=== PATIENT | female | born 1945 | race Two or more races ===

== ENCOUNTER 2024-03-23 13:17 | Emergency (ER) | payer MEDICARE, MEDICAID, SELFPAY ==
--- NOTE | 2024-03-23 13:27 | EKG_ITS ---
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
[2024-03-23 13:47] VITALS: BP 147/69; PULSE 72; RESP 17; TEMP 36.8; O2SAT 95
--- NOTE | 2024-03-23 13:57 | XR_ITS ---
Examination: Ribs, left, with PA chest, 4 views Technique: Chest PA, RIBS AP, RPO, LPO, 4 views Exam date and time: March 23, 2024 1401 hours INDICATIONS: Patient fell yesterday with injury to the left chest left rib pain Findings: Normal heart size Median sternotomy wires. No pneumothorax IMPRESSION: No pneumothorax pulmonary contusion or hemothorax No acute left rib fractures depicted
--- NOTE | 2024-03-23 13:58 | PD.EDRME ---
Rapid Medical Screening Exam FORMERLY [facility] Arrival date/time: 03/23/24 13:17 78-year-old female presents to the emergency department with complaints of left-sided chest pain. She does report that yesterday she lifted a heavy mattress unknown if she pulled something. History of CABG and ND. I have greeted and performed a focused initial assessment of this patient. Initial appropriate labs ordered at this time. A comprehensive ED assessment and evaluation of the patient and analysis of all test and completion of medical decision making process will be conducted by additional ED provider. Chief Complaint: Chest Pain Time Seen by Provider: 03/23/24 13:45 Vital signs: Vital Signs Temperature 98.2 F 03/23/24 13:47 Pulse Rate 72 03/23/24 13:47 Respiratory Rate 17 03/23/24 13:47 Blood Pressure 147/69 H 03/23/24 13:47 Pulse Oximetry (%) 95 03/23/24 13:47 Oxygen Delivery Method Room Air 03/23/24 13:47
[2024-03-23 14:32] LABS: Basophils % (Auto) 1 % (0-2.5); Eosinophils # (Auto) 0.1 Thou/mm3 (0.0-0.5); Eosinophils % (Auto) 2 % (0-10); Hematocrit 37.5 % (36.0-46.0); Hemoglobin 12.5 g/dL (12.0-16.0); Immature Granulocytes % (Auto) 0 % (0-0); Immature Granulocytes Auto 0.01 Thou/mm3 (0.00-0.00); Lymphocytes # (Auto) 1.6 Thou/mm3 (1.0-4.8); Lymphocytes % (Auto) 26 % (10-50); Mean Corpuscular HGB Conc 33.3 g/dl (31.0-37.0); Mean Corpuscular Hemoglobin 31.7 pg (25.0-35.0); Mean Corpuscular Volume 95 fL (80-100); Monocytes # (Auto) 0.5 Thou/mm3 (0.0-0.8); Monocytes % (Auto) 8 % (0-12); Neutrophils % (Auto) 63 % (37-80); Nucleated Red Blood Cell % 0 /100 WBC (0); Platelet Count 242 Thou/mm3 (140-440); Red Blood Count 3.94 Miln/mm3 (4.00-5.20); White Blood Count 6.2 Thou/mm3 (3.6-11.0)
[2024-03-23 14:55] LABS: B-Type Natriuretic Peptide 166 pg/mL (0-100)
[2024-03-23 14:56] LABS: Alanine Aminotransferase 22 U/L (10-49); Albumin, Serum 4.5 gm/dL (3.4-4.8); Albumin/Globulin Ratio 2.1 (1.2-2.2); Alkaline Phosphatase 92 U/L (46-116); Anion Gap 4 (7-16); Aspartate Amino Transferase 13 U/L (0-34); BUN/Creatinine Ratio 16 Ratio (12-20); Bilirubin,Total 0.5 mg/dL (0.3-1.2); Blood Urea Nitrogen 13 mg/dL (9-23); Calcium 9.7 mg/dL (8.3-10.6); Calcium (Corrected) 9.7 mg/dL (8.5-10.1); Carbon Dioxide 30.7 mMol/L (20.0-31.0); Chloride 104 mMol/L (98-107); Creatinine (Component) 0.8 mg/dL (0.6-1.3); Globulin 2.1 gm/dL (2.3-3.5); Glucose 213 mg/dL (74-106); Lipase 28 U/L (12-53); Osmolality,Calculated 283 (275-295); Potassium 3.7 mMol/L (3.4-5.1); Sodium 139 mMol/L (136-145); Total Protein 6.6 gm/dL (5.7-8.2); Troponin I < 0.020 ng/mL (0.0-0.045); eGFR > 60 See Note
[2024-03-23 19:16] VITALS: BP 193/70; PULSE 72; RESP 17; TEMP 36.5; O2SAT 96
--- NOTE | 2024-03-23 19:27 | EDNOTE_ITS ---
ED Chest Pain RME/HPI General Chief Complaint: Chest Pain Stated Complaint: CHEST PRESSURE SINCE YESTERDAY Time Seen by Provider: 03/23/24 13:45 Arrival date/time: 03/23/24 13:17 RME / HPI RME / HPI narrative: 78-year-old female presents to the emergency department with complaints of left- sided chest pain. She does report that yesterday she lifted a heavy mattress unknown if she pulled something. Patient denies any shortness of breath. Denies any cough denies any other complaints patient is ambulatory. History of CABG and PA. Related Data Home Medications ?Medication ?Instructions ?Recorded ?Confirmed aspirin 81 mg tablet,delayed 81 mg PO QDAY 05/29/18 07/19/22 release omeprazole 20 mg capsule,delayed 40 mg PO QDAY 01/01/19 07/19/22 release alendronate 70 mg tablet 70 mg PO QWEEK 07/16/22 07/16/22 apixaban 2.5 mg tablet (Eliquis) 2.5 mg PO BID 07/16/22 07/16/22 ferrous sulfate 325 mg (65 mg 325 mg PO QDAY 07/16/22 07/19/22 iron) tablet losartan 100 1 tab PO QDAY 07/16/22 07/19/22 mg-hydrochlorothiazide 12.5 mg tablet metformin 500 mg tablet 500 mg PO BIDWMEAL 07/16/22 07/19/22 metoprolol succinate 50 mg 50 mg PO QDAY 07/16/22 07/19/22 tablet,extended release 24 hr potassium chloride 20 mEq 20 meq PO QDAY 07/16/22 07/19/22 tablet,extended release simvastatin 20 mg tablet 20 mg PO QPM 07/16/22 07/19/22 Previous Rx's ?Medication ?Instructions ?Recorded sodium chloride 0.65 % nasal spray 2 spray intranasal QID PRN nasal 12/09/21 aerosol (Saline Nasal) congestion #88 mL levofloxacin 750 mg tablet 750 mg PO QDAY #7 tabs 12/12/23 ibuprofen 800 mg tablet 800 mg PO QID PRN pain #30 tabs 03/23/24 Allergies Allergy/AdvReac Type Severity Reaction Status Date / Time Penicillins Allergy Unknown Verified 03/27/23 13:38 Review of Systems Review of Systems Narrative Review of Systems: Review of system reviewed and within normal limits except mentioned in HPI ED Exam Narrative Physical exam: VITAL SIGNS: Reviewed. GENERAL APPEARANCE: Alert and interactive, follows commands, no acute distress, HEAD AND FACE: Non-traumatic. ENT: PERRL, pink conjunctivitis, eyelid no trauma, Mucous membrane moist. NECK: Supple, nontender, no nuchal rigidity. CHEST: Tenderness to the left chest wall tenderness, no crepitus, no paradoxical movement, no retractions. LUNGS: Clear, well ventilated, symmetric, no rales, no wheezing, no ronchi, no stridor, good breath sounds bilaterally. HEART: Regular rate, regular rhythm, no murmur, no gallops. ABDOMEN: Soft, positive bowel sounds, nondistended, no guarding, nontender, no rebound, no masses, RECTAL: Deferred. GENITAL: Deferred. NEUROLOGICAL: Gross motor function intact sensory function intact, Appropriate for age. MUSCULOSKELETAL: low back nontender, full range of motion. EXTREMITIES: Nontender, full range of motion. SKIN: Color pink, dry, no rash, no lacerations, no abrasions, no contusions. LYMPHATICS: Deferred. Course Quality Measures none Orders Category Date Time Status EKG (ED ONLY) *Do not use* NOW Care 03/23/24 13:27 Completed EKG (ED Only) Stat Exams 03/23/24 13:27 Draft XR ribs LT min 3V w CXR1V Stat Exams 03/23/24 13:57 Completed B-Type Natriuretic Peptide Stat Lab 03/23/24 14:24 Completed CBC Stat Lab 03/23/24 14:24 Completed Comprehensive Metabolic Panel Stat Lab 03/23/24 14:24 Completed Lipase Stat Lab 03/23/24 14:24 Completed Troponin I Stat Lab 03/23/24 14:24 Completed Vital Signs Vital signs: Vital Signs Temperature 98.2 F 03/23/24 13:47 Pulse Rate 72 03/23/24 13:47 Respiratory Rate 17 03/23/24 13:47 Blood Pressure 147/69 H 03/23/24 13:47 Pulse Oximetry (%) 95 03/23/24 13:47 Oxygen Delivery Method Room Air 03/23/24 13:47 Chest Pain MDM Narrative MDM Narrative:: 78-year-old female presents to the emergency department with complaints of left- sided chest pain. She does report that yesterday she lifted a heavy mattress unknown if she pulled something. Patient denies any shortness of breath. Denies any cough denies any other complaints patient is ambulatory. History of CABG and PA. Patient's workup all came back normal. Chest x-ray also came back unremarkable no rib fracture no pneumothorax noted. EKG showed sinus rhythm, ventricular rate of 71 bpm, no ST segment elevation depression noted. Results discussed with the patient. Patient is stable for discharge home. Patient data External records reviewed:: None Clinical information provided by:: patient Social determinants that could affect healthcare access:: none Patient has the following chronic illnesses:: History of PA, CABG, hypertension How is presenting disease/condition affected by chronic disease/condition?: exacerbated by Evaluation data The following diagnostics were reviewed and interpreted by me:: lab results, radiology exam(s) and EKG tracing(s) Lab and/or radiology exams considered but not ordered:: None Interpretation Summary: Patient's workup all came back normal. Chest x-ray also came back unremarkable no rib fracture no pneumothorax noted. EKG showed sinus rhythm, ventricular rate of 71 bpm, no ST segment elevation depression noted. Medications / Prescriptions Medications or Prescriptions considered but not ordered:: None Medication administrations:: None Consultations Consultation(s) initiated? (list below): No Diagnosis Chest Pain Differential Diagnosis: pneumothorax, costochondritis and chest pain Most likely diagnosis given after review of the tests above:: Chest wall pain, muscular Admission Indicated Admission indicated?: not indicated Admission Request Was there a request for admission?: No Disposition Plan Disposition Plan: Discharge Discharge Attestation Discharge Attestation: The patient was given an opportunity to ask questions and understood the d ischarge instructions. Discharge instructions specifically effects, indications for sooner follow up or return to the emergency department, and the expected course of current diagnosis. Patient condition: Stable Discharge Plan Plan Patient Disposition: HOME (Self Care) Disposition Comment: Stable Prescriptions/Referrals Prescriptions/Med Rec: New ibuprofen 800 mg tablet 800 mg PO QID PRN (Reason: pain) Qty: 30 0RF No Action aspirin 81 mg Tablet,Delayed Release (Dr/Ec) 81 mg PO QDAY omeprazole 20 mg Capsule,Delayed Release(Dr/Ec) 40 mg PO QDAY Saline Nasal 0.65 % aerosol,spray 2 spray intranasal QID PRN (Reason: nasal congestion) Qty: 88 0RF levofloxacin 750 mg tablet 750 mg PO QDAY Qty: 7 0RF metformin 500 mg Tablet 500 mg PO BIDWMEAL metoprolol succinate 50 mg Tablet Extended Release 24 Hr 50 mg PO QDAY alendronate 70 mg Tablet 70 mg PO QWEEK simvastatin 20 mg Tablet 20 mg PO QPM ferrous sulfate 325 mg (65 mg iron) Tablet 325 mg PO QDAY losartan-hydrochlorothiazide 100-12.5 mg Tablet 1 tab PO QDAY Eliquis 2.5 mg Tablet 2.5 mg PO BID potassium chloride 20 mEq Tablet Extended Release 20 meq PO QDAY Referrals: Chaparro Mc MD [Primary Care Provider] - In 1 week Problem List Clinical Impression: Chest wall pain, Fall Patient/Caregiver Discharge Instructions Discharge Activity: activity as tolerated Education Materials: Understanding the Pain Response Additional Instructions: Thank you for the opportunity for serving you today. You are stable for discharged . You are advised to: Follow-up with your PCP in 1 to 2 days Return to ED for worsening of symptoms Increase oral fluids Take medication as prescribed Print Language: [place] Stand Alone Forms: Gretchen Award Info., Patient Portal Info Letter CHRISTIAN/RAY Supervising Physician CHRISTIAN/RAY Supervising Physician: MD Ayden
[2024-03-23 20:16] VITALS: BP 198/77; PULSE 65
[2024-03-23] MEDS: NIFEdipine 10 MG CAPSULE PO (20:16)
[2024-03-23 21:00] VITALS: BP 164/76; PULSE 70; RESP 18; O2SAT 96
== END 2024-03-23 21:13 | disposition home or self-care (01) ==
PROVIDERS: Nurse Practitioner Primary Care; Emergency Provider Emergency Medicine; PCP Family Medicine
DX: S29.9XXA Unspecified injury of thorax, initial encounter (principal); W19.XXXA Unspecified fall, initial encounter; I10 Essential (primary) hypertension; I25.2 Old myocardial infarction; Z95.1 Presence of aortocoronary bypass graft; Z79.01 Long term (current) use of anticoagulants
CPT/HCPCS: 36415; 71101; 80053; 83690; 83735; 83880; 84484; 85025; 85610; 93005; 99283; A9270

== ENCOUNTER 2025-02-15 21:07 | Observation (INO) | payer MEDICARE, MEDICAID, SELFPAY ==
[2025-02-15 21:16] VITALS: BP 191/97; PULSE 73; RESP 18; TEMP 36.8; O2SAT 95
--- NOTE | 2025-02-15 21:19 | XR_ITS ---
Examination: CTA carotids with intravenous contrast CTA brain, head with intravenous contrast. 2-D sagittal, coronal reconstructions. 3-D reconstructions. Exam date and time: February 15, 2025, 2132 hours CTDI: vol (mGy) 26.99 DLP: (mGycm) 499 Technique: Multiple CTA axial brain, head carotid images post intravenous contrast injection 75 cc, [id number]. 2-D sagittal, coronal reconstructions. 3-D reconstructions, 3-D post processing including vascular maximum intensity projection images. Low dose protocols were performed. One or more of the following dose reduction techniques were used; automated exposure control, adjustment of the mA and/or KV according to patient size, use of iterative reconstruction technique. Findings: No critical common carotid carotid bifurcation or internal carotid artery stenoses Dominant left vertebral artery in the neck with no critical stenoses Intracranial vertebral arteries basilar artery and posterior cerebral branches do fill with no large vessel occlusions Juxtasellar supraclinoid portions internal carotid arteries fill M1 segments middle cerebral arteries middle cerebral artery trifurcation vessels and anterior cerebral arteries fill with no large vessel occlusions IMPRESSION: No significant neck arterial stenoses No cerebral large vessel arterial occlusions or thrombus
--- NOTE | 2025-02-15 21:19 | XR_ITS ---
EXAMINATION: AP chest single view TECHNIQUE: AP portable upright chest single view Date and time: February 15, 2025, 215 hours, comparison March 23, 2024 INDICATIONS: Stroke alert today FINDINGS: Mild to moderate enlargement cardiac contour. Median sternotomy wires. Moderate vascular congestion. No aspiration pneumonia. Prominent osteopenia IMPRESSION: Moderate vascular congestion No aspiration pneumonia
--- NOTE | 2025-02-15 21:19 | XR_ITS ---
Examination: CT brain head without contrast. 2-D sagittal coronal reconstructions Date and time of exam: February 15, 2025, 2125 hours INDICATIONS: Stroke alert CTDI: vol (mGy): 49.1 DLP: (mGycm): 954 Technique: Multiple CT axial sections of the brain have been obtained, 5 mm slice thickness. Contrast has not been administered. 2-D sagittal, coronal reconstructions have been obtained Low dose protocols were performed. One or more of the following dose reduction techniques were used; automated exposure control, adjustment of the mA and/or KV according to patient size, use of iterative reconstruction technique. Findings: No significant ventricular enlargement. Intra-axial or extra-axial hemorrhage density is not seen. No mass effect or midline shift Basal cisterns are not remarkable. Fourth ventricle is midline. Cranial vault intact. Impression: Negative for acute hemorrhage, mass effect or midline shift
--- NOTE | 2025-02-15 21:19 | EKG_ITS ---
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
--- NOTE | 2025-02-15 21:20 | PD.EDRME ---
Rapid Medical Screening Exam [facility] Arrival date/time: 02/15/25 21:07 79F with history of HTN, DM, and unknown heart arrhythmia (on Eliquis) presents to ED with 1 hour of L-facial numbness and mild DAVID. There is also some generalized weakness. Patient denies vision changes. Chief Complaint: Neuro Symptoms/Deficit Vital signs: Vital Signs Temperature 98.2 F 02/15/25 21:16 Pulse Rate 73 02/15/25 21:16 Respiratory Rate 18 02/15/25 21:16 Blood Pressure 191/97 H 02/15/25 21:16 Pulse Oximetry (%) 95 02/15/25 21:16 Oxygen Delivery Method Room Air 02/15/25 21:16 Exam: Normal pupil response and EOM. CN II-XII grossly intact. Speech normal. Gait normal. Neg pronator drift test. Strength equal bilaterally. Clinical Impression: hemorrhagic/ischemic TIA/CVA vs migraine vs anxiety vs Cabrera's Palsy vs sinusitis
[2025-02-15 21:34] LABS: Basophils # (Auto) 0.0 Thou/mm3 (0.0-0.2); Basophils % (Auto) 0 % (0-2.5); Eosinophils # (Auto) 0.2 Thou/mm3 (0.0-0.5); Eosinophils % (Auto) 2 % (0-10); Hematocrit 38.9 % (36.0-46.0); Hemoglobin 13.2 g/dL (12.0-16.0); Immature Granulocytes Auto 0.02 Thou/mm3 (0.00-0.00); Lymphocytes # (Auto) 2.5 Thou/mm3 (1.0-4.8); Lymphocytes % (Auto) 36 % (10-50); Mean Corpuscular HGB Conc 33.9 g/dl (31.0-37.0); Mean Corpuscular Hemoglobin 31.6 pg (25.0-35.0); Mean Corpuscular Volume 93 fL (80-100); Monocytes # (Auto) 0.6 Thou/mm3 (0.0-0.8); Monocytes % (Auto) 8 % (0-12); Neutrophils # (Auto) 3.6 Thou/mm3 (1.8-7.7); Neutrophils % (Auto) 53 % (37-80); Nucleated Red Blood Cell # 0.00 Thou/mm3 (0.00-0.00); Nucleated Red Blood Cell % 0 /100 WBC (0); Platelet Count 211 Thou/mm3 (140-440); RDW Standard Deviation 42.6 fL (36.4-46.3); Red Blood Count 4.18 Miln/mm3 (4.00-5.20); White Blood Count 6.9 Thou/mm3 (3.6-11.0)
--- NOTE | 2025-02-15 21:47 | PD.EDNEURO ---
Neuro Symptoms Deficit-RME/HPI General Chief Complaint: Neuro Symptoms/Deficit Stated Complaint: DAVID, LEFT FACIAL NUMBNESS X1HR, WEAKNESS Arrival date/time: 02/15/25 21:07 RME / HPI On Anticoagulants: Yes RME / HPI Narrative: 02/15/25 21:07 79F with history of HTN, DM, and unknown heart arrhythmia (on Eliquis) presents to ED with 1 hour of L-facial numbness and mild DAVID. There is also some generalized weakness. Patient denies vision changes. DR. 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 No nausea, vomiting, fever or chills. No visual disturbances, laterallizing motor or sensory disturbance. On Eliquis. PMH: Coronary Artery Disease, Hypercholesterolemia, Valvular Heart Disease, Hypertension, Obesity, Arthritis, Diabetes Mellitus Type 2 PSH: Cardiac Surgery, Open Heart Surgery, Coronary Artery Bypass Graft, Hysterectomy and Tubal Ligation, Veinous Stripping Allergies: Penicillins Social: Negative Exam: Normal pupil response and EOM. CN II-XII grossly intact. Speech normal. Gait normal. Neg pronator drift test. Strength equal bilaterally. Impression: hemorrhagic/ischemia TIA/CVA vs migraine vs anxiety vs Cabrera's Palsy Related Data Home Medications ?Medication ?Instructions ?Recorded ?Confirmed aspirin 81 mg tablet,delayed 81 mg PO QDAY 05/29/18 02/16/25 release omeprazole 20 mg capsule,delayed 40 mg PO QDAY 01/01/19 02/16/25 release ferrous sulfate 325 mg (65 mg 325 mg PO QDAY 07/16/22 02/16/25 iron) tablet losartan 100 1 tab PO QDAY 07/16/22 02/16/25 mg-hydrochlorothiazide 12.5 mg tablet metformin 500 mg tablet 500 mg PO BIDWMEAL 07/16/22 02/16/25 potassium chloride 20 mEq 20 meq PO QDAY 07/16/22 02/16/25 tablet,extended release simvastatin 20 mg tablet 20 mg PO QPM 07/16/22 02/16/25 Previous Rx's ?Medication ?Instructions ?Recorded sodium chloride 0.65 % nasal spray 2 spray intranasal QID PRN nasal 12/09/21 aerosol (Saline Nasal) congestion #88 mL ibuprofen 800 mg tablet 800 mg PO QID PRN pain #30 tabs 03/23/24 Allergies Allergy/AdvReac Type Severity Reaction Status Date / Time Penicillins Allergy Unknown Verified 02/15/25 21:08 Review of Systems Review of Systems Systems Reviewed: All systems reviewed, normal except as documented Past Medical History Past Medical History CARDIAC: Positive Coronary Artery Disease, Hypercholesterolemia, Valvular Heart Disease and Hypertension GASTROINTESTINAL: Positive Obesity REPRODUCTIVE: Positive Previous Pregnancies MUSCULOSKELETAL: Positive Arthritis ENDOCRINE: Positive Diabetes Mellitus Type 2 Surgical History SURGICAL: Positive Cardiac Surgery, Open Heart Surgery, Coronary Artery Bypass Graft, Hysterectomy and Tubal Ligation ED Exam Narrative Physical exam: GEN. APPEARANCE: The patient is alert awake oriented X-3 under no distress, lying down comfortably, does not look ill/toxic c/o left facial paresthesias. Patient has good eye contact. Patient is cooperative. Markedly hypertensive. VITALS: All vitals were reviewed and the pulse ox is 95%, which is normal according to my interpretation HEENT: Normocephalic, atraumatic and nontender. Pupils are equal and reactive. Oral mucosa is moist. NECK: Supple, nontender, no meningismus, no JVD. There is no thyromegaly and no lymphadenopathy. CHEST: Nontender on palpation no deformity and no crepitus. CARDIOVASCULAR: Heart regular rhythm, no murmur or gallop rub or extra beats. LUNGS: Clear to auscultation bilaterally with symmetrical chest rise. No laboring tachypnea or wheezing. No intercostal subcostal retraction. No rales and no rhonchi. ABDOMEN: Soft, flat, nontender to palpation, no guarding or rebound tenderness. There are no abnormal masses palpated. No pulsatile masses or bruits. Active and normal bowel sounds. EXTREMITIES: Normal inspection and palpation. No edema. No cyanosis. Patient is able to move all 4 extremities well SKIN: Warm and dry, no rashes noted. MUSCULOSKELETAL: No lumbar or midline bony tenderness. There is no CVA tenderness. No paraspinal muscle spasm or tenderness. NEURO: Cranial nerves II through XII grossly intact. There are no focal neurologic deficits noted. Slightly diminished left-facial sensation of left maxillary region/CN V, normal [id number], gait not observed. PSYCHIATRIC: Patient is in normal mood and affect, cooperative. LYMPHATICS: No major lymphadenopathy noted. Course Quality Measures Suspected type of Stroke: Unknown at this time Last known well (date): 02/15/25 Tenecteplase given: Reason(s) TPA not given: Use of NOAC (eliquis, xarelto, or pradaxa) not given stroke Orders Category Date Time Status Bedside Blood Glucose NOW Care 02/15/25 21:19 Active Fruit Worker NOW Care 02/15/25 21:19 Active Continuous Pulse Oximetry NOW Care 02/15/25 21:19 Completed EKG (ED ONLY) *Do not use* NOW Care 02/15/25 21:19 Completed In and Out Catheter NEEDED Care 02/15/25 21:19 Active Insert IV NOW Care 02/15/25 21:19 Active NIH Stroke Scale now Care 02/15/25 21:19 Active NPO NOW Care 02/15/25 21:19 Active Nurse Swallow Screen x1 Care 02/15/25 21:19 Active Consult to Neurology / Tele-Neurology Routine Cons 02/15/25 21:[address] angio stroke protocol Stat Exams 02/15/25 21:[address] stroke protocol Stat Exams 02/15/25 21:19 Taken EKG (ED Only) Stat Exams 02/15/25 21:19 Draft XR chest 1V portable Stat Exams 02/15/25 21:19 Completed C-Reactive Protein Stat Lab 02/15/25 21:21 Completed CBC Stat Lab 02/15/25 21:21 Completed Comprehensive Metabolic Panel Stat Lab 02/15/25 21:21 Completed Drug Screen,Urine Stat Lab 02/15/25 10:30 Completed Magnesium Stat Lab 02/15/25 21:21 Completed Partial Thromboplastin Time Stat Lab 02/15/25 21:21 Completed Prothrombin Time with INR Stat Lab 02/15/25 21:21 Completed Troponin I Stat Lab 02/15/25 21:21 Completed Urinalysis, C/S if Indicated Stat Lab 02/15/25 10:30 Completed Labetalol* IV [Trandate* IV] Med 02/15/25 21:19 Discontinued 10 mg IVP Q15M PRN Ondansetron Inj [Zofran Inj] Med 02/15/25 21:19 Discontinued 4 mg IVP Q4HR PRN hydrALAZINE INJ [Apresoline Inj] Med 02/15/25 22:03 Discontinued 5 mg IVP X1 ONE Oxygen Delivery NOW RT 02/15/25 21:19 Active Vital Signs Vital signs: Vital Signs Temperature 98.2 F 02/15/25 21:16 Pulse Rate 73 02/15/25 21:16 Respiratory Rate 18 02/15/25 21:16 Blood Pressure 191/97 H 02/15/25 21:16 Pulse Oximetry (%) 95 02/15/25 21:16 Oxygen Delivery Method Room Air 02/15/25 21:16 Neuro Symptoms / Deficit MDM Narrative MDM Narrative:: Scribe Attestation: Yesenia Garcia, am scribing for and in the presence of Dr. Singleton. Provider Notation: Although this document has been carefully reviewed, there may still be some phonetic and other typographical errors. These errors are purely grammatical due to imperfections in the software program and should not be construed in any way to compromise the substance of the patient's medical care during this visit. 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 No nausea, vomiting, fever or chills. No visual disturbances, liberalizing motor or sensory disturbance. Please see PE findings. Patient placed on stroke protocol and CT scan unremarkable. CTA also negative. Patient seen by neuro-telli physician and not candidate for TNKase due to full-dose anticoagulate, on Eliquis and minimal symptoms. Placed on cardiac catheterization technologist, administered anti-hypertensives, with marked overall improvement. Recommendations include admit for observation, continue ASA and hold Eliquis at this time. Final diagnosis is hypertensive episode disposition, admit to hospital service for further evaluation and treatment. Patient data External records reviewed:: [facility] previous records (Reviewed prior ED records from 03/23/24. Patient was seen for Chest wall pain.) Clinical information provided by:: patient Social determinants that could affect healthcare access:: none Patient has the following chronic illnesses:: Coronary Artery Disease, Hypercholesterolemia, Valvular Heart Disease, Hypertension, Obesity, Arthritis, Diabetes Mellitus Type 2 How is presenting disease/condition affected by chronic disease/condition?: exacerbated by Evaluation data The following diagnostics were reviewed and interpreted by me:: lab results, radiology exam(s) and EKG tracing(s) (EKG at 2139 shows normal sinus rhythm at 69, normal axis, no ectopy, no signs of acute ischemia, per my interpretation.) Lab and/or radiology exams considered but not ordered:: None Interpretation Summary: RADIOLOGY Head/Neck CTA: Findings: No critical common carotid carotid bifurcation or internal carotid artery stenoses Dominant left vertebral artery in the neck with no critical stenoses Intracranial vertebral arteries basilar artery and posterior cerebral branches do fill with no large vessel occlusions Juxtasellar supraclinoid portions internal carotid arteries fill M1 segments middle cerebral arteries middle cerebral artery trifurcation vessels and anterior cerebral arteries fill with no large vessel occlusions IMPRESSION: No significant neck arterial stenoses No cerebral large vessel arterial occlusions or thrombus Head/Brain CT: Findings: There is no evidence of intracranial hemorrhage, mass effect or midline shift. There are periventricular white matter hypodensities, compatible with chronic small vessel ischemia. There is mild volume loss. The calvarium is unremarkable. The mastoid air cells are clear. Mucosal inclusion cysts in the left maxillary sinus. Impression: No evidence of intracranial hemorrhage, mass effect or midline shift. Periventricular chronic small vessel ischemia and volume loss. Aspirin score 10. Chest X-Ray: FINDINGS: Mild to moderate enlargement cardiac contour. Median sternotomy wires. Moderate vascular congestion. No aspiration pneumonia. Prominent osteopenia IMPRESSION: Moderate vascular congestion No aspiration pneumonia Medications / Prescriptions Medications or Prescriptions considered but not ordered:: None Medication administrations:: Medication Administration History Acetaminophen (Acetaminophen 325 Mg Tablet) 650 mg PO Q6H PRN PRN Reason: Fever >100.4 Stop: 03/18/25 01:18 Acetaminophen (Acetaminophen 325 Mg Tablet) 650 mg PO Q6H PRN PRN Reason: PAIN SCALE 1-3 (mild Stop: 03/18/25 01:18 Last Admin: 02/16/25 02:50 Dose: 650 mg Documented By: MERNA Aspirin (Aspirin Ec 81 Mg Tabec) 81 mg PO QDAY INA Stop: 03/18/25 08:59 Last Admin: 02/16/25 08:24 Dose: 81 mg Documented By: TM Atorvastatin Calcium (Atorvastatin Calcium 20 Mg Tablet) 40 mg PO HS INA Stop: 03/18/25 20:59 Dextrose (Dextrose 50%-Water Inj 50 Ml Syringe) 25 ml IV Q15MIN PRN PRN Reason: BG 50-70 responsive npo pt Stop: 03/18/25 01:39 Dextrose (Dextrose 50%-Water Inj 50 Ml Syringe) 50 ml IV Q15MIN PRN PRN Reason: BG <50 OR BG <70 & pt unresponsive Stop: 03/18/25 01:39 Enoxaparin Sodium (Enoxaparin Sod Inj 40 Mg/0.4 Ml Syringe) 40 mg SC QDAY INA Stop: 03/02/25 08:59 Last Admin: 02/16/25 08:23 Dose: 40 mg Documented By: LEIGHANN Glucagon (Glucagon Inj 1 Mg Vial) 1 mg IM Q15MIN PRN PRN Reason: BG <70, and no IV access Insulin Human Lispro (Insulin Lispro (Admelog) 1 Unit/0.01 Ml Unit) 0 unit SC AC [facility]; Protocol Stop: 03/18/25 07:29 Last Admin: 02/16/25 17:48 Dose: 2 unit Documented By: DANNY Co-signed By: benedict Admin: 02/16/25 12:00 Dose: Not Given Documented By: DANNY Non-Admin Reason: Per Protocol Admin: 02/16/25 08:10 Dose: Not Given Documented By: LEIGHANN Non-Admin Reason: Per Protocol Labetalol HCl (Labetalol Inj 5 Mg/Ml Vial 4 Ml) 10 mg IVP Q15M PRN PRN Reason: hypertension Ondansetron HCl (Ondansetron Inj 2 Mg/Ml Inj 2 Ml) 4 mg IVP Q6H PRN; Protocol PRN Reason: NAUSEA OR VOMITING Stop: 03/18/25 01:18 Pantoprazole Sodium (Pantoprazole Inj 40 Mg Vial) 40 mg IVP QDAY INA Stop: 03/18/25 08:59 Last Admin: 02/16/25 08:23 Dose: 40 mg Documented By: LEIGHANN Sennosides (Senna Tablet) 1 tab PO QDAY INA; Protocol Stop: 03/18/25 08:59 Last Admin: 02/16/25 08:24 Dose: 1 tab Documented By: TM Discontinued Medications Hydralazine HCl (Hydralazine Inj 20 Mg/Ml Vial) 5 mg IVP X1 ONE Stop: 02/15/25 22:04 Last Admin: 02/15/25 22:21 Dose: 5 mg Documented By: MERNA Sodium Chloride (Ns) 1,000 mls @ 75 mls/hr IV .[id number] INA Stop: 03/18/25 01:29 Last Admin: 02/16/25 02:30 Dose: 75 mls/hr Documented By: MERNA Labetalol HCl (Labetalol Inj 5 Mg/Ml Vial 4 Ml) 10 mg IVP Q15M PRN PRN Reason: hypertension Ondansetron HCl (Ondansetron Inj 2 Mg/Ml Inj 2 Ml) 4 mg IVP Q4HR PRN PRN Reason: NAUSEA OR VOMITING Stop: 03/17/25 21:18 See above if any Consultations Consultation(s) initiated? (list below): Yes Consultation #1 (Physician, Specialty, Details): Telli-neurologist made aware of the patient?s HPI, PMHx, lab and/or radiology results. Discussed treatment plan. Advises to discontinue Eliquis and continue with ASA. Time: 22:27 Consultation #2 (Physician, Specialty, Details): Discussed with resident physician, Dr. Negron, for admission. Reviewed the patient?s HPI, PMHx, lab and/or radiology results. Discussed treatment plan. Will consult an admission to the hospitalist. Time: 00:43 Diagnosis Neuro Differential Diagnosis: convulsions, delirium, subarachnoid hemorrhage, peripheral neuropathy, cerebrovascular accident, multiple sclerosis and transient cerebral ischemia Most likely diagnosis given after review of the tests above:: Hypertensive Episode Admission Indicated Admission indicated?: indicated Explain why admission is indicated or not indicated:: Hypertensive Episode Admission Request Was there a request for admission?: Yes Admission Attestation Admission request attestation: Discussed case with [] from Hospitalist service regarding admission. Discussed patients ED course, exam findings, labs, and radiology results. The Hospitalist [agrees,declines] to accept the patient for admission. Disposition Plan Disposition Plan: Admit Discharge Plan Plan Patient Disposition: Admit Acute Care w/in Hospital Problem List Clinical Impression: Episode of hypertension
[2025-02-15 22:01] LABS: INR 1.0 (0.9-1.3); Partial Thromboplastin Time 27.7 Seconds (22.0-36.0); Prothrombin Time 10.4 Seconds (9.0-12.2)
--- NOTE | 2025-02-15 22:02 | ESCONSULT_ITS ---
Tele Neuro Consultation Consultation Date 02/15/25 Most Recent Vital Signs Last Vital Signs Temp 98.2 F 02/15/25 21:16 Pulse 73 02/15/25 21:16 Resp 18 02/15/25 21:16 BP 191/97 H 02/15/25 21:16 Pulse Ox 95 02/15/25 21:16 O2 Del Method Room Air 02/15/25 21:16 Laboratory-Coagulation Panel PT 10.4 Seconds (9.0-12.2) 02/15/25 21:21 INR 1.0 (0.9-1.3) 02/15/25 21:21 APTT 27.7 Seconds (22.0-36.0) 02/15/25 21:21 Consultation Narrative [facility] Tele[facility]urology Consult Services Patient Name:???VIVIANE MCKINLEY Date of :???1945 Identification Number:??? Date of Service:???02/15/2025 21:21:47 Diagnosis:?R51.9 - Headache, unspecified ?R20.2 - Paresthesia of skin Impression: ?79yo woman with history of HTN, cardiac arrhythmia on eliquis, DM, HLD presents with headache and left facial numbness. Not a candidate for thrombolytics as she is on a DOAC with last dose within 48hrs. CTA pending, if negative, recommend further evaluation with MRI Brain w/o, hold eliquis pending MRI, start aspirin instead. Would also screen ESR/CRP. Our recommendations are outlined below. Recommendations: ? Stroke/Telemetry Floor ? Neuro Checks (Q4) ? Bedside Swallow Eval ? DVT Prophylaxis ? IV Fluids, Normal Saline ? Head of Bed 30 Degrees ? Euglycemia and Avoid Hyperthermia (PRN Acetaminophen) ? Hold Anticoagulation for Now ? Initiate or continue Aspirin 81 MG daily ?MRI brain w/o ?screen ESR/CRP Sign Out: ? Discussed with Emergency Department Provider Advanced Imaging: Advanced imaging has been ordered. Results pending. Metrics: Last Known Well: 02/15/2025 20:00:00 Arrival Time: 02/15/2025 21:07:00 Activation Time: 02/15/2025 21:21:47 Initial Response Time: 02/15/2025 21:25:20Symptoms: headache, left facial numbness. Initial patient interaction: 02/15/2025 21:40:54 NIHSS Assessment Completed: 02/15/2025 21:57:57Patient is not a candidate for Thrombolytic. Thrombolytic Medical Decision: 02/15/2025 21:57:57Patient was not deemed candidate for Thrombolytic because of following reasons: Use of NOAC in last [address] Head: I personally reviewed all the CT images that were available to me and it showed: no ICH or acute core infarct Primary Provider Notified of Diagnostic Impression and Management Plan on: 02/15/2025 21:58:07 History of Present Illness:Patient is a 79 year old Female. Patient was brought by private transportation with symptoms of headache, left facial numbness. 79yo woman with history of HTN, afib on eliquis, DM, HLD presents with headache and left facial numbness. She reports onset of a mild frontal headache at around 8pm about an hour prior to presentation to the ED along with left facial numbness which has persisted. Headache was not severe at any point. She is on eliquis, last dose this morning per patient. Past Medical History: ?Hypertension ?Diabetes Mellitus ?Hyperlipidemia ?Atrial Fibrillation Medications: Anticoagulant use:??Yes?eliquis, last dose this morning Antiplatelet use:?Yes?aspirin Reviewed EMR for current medications Allergies:? Reviewed Social History: Drug Use: No Family History: There is no family history of premature cerebrovascular disease pertinent to this consultation ROS : 14 Points Review of Systems was performed and was negative except mentioned in HPI. Past Surgical History: There Is No Surgical History Contributory To Today?s Visit Examination: BP(191/97),?Pulse(73), 1A: Level of Consciousness - Alert; keenly responsive?+ 0 1B: Ask Month and Age - Both Questions Right?+ 0 1C: Blink Eyes & Squeeze Hands - Performs Both Tasks?+ 0 2: Test Horizontal Extraocular Movements - Normal?+ 0 3: Test Visual Bills - Partial Hemianopia?+ 1 4: Test Facial Palsy (Use Grimace if Obtunded) - Normal symmetry?+ 0 5A: Test Left Arm Motor Drift - No Drift for 10 Seconds?+ 0 5B: Test Right Arm Motor Drift - No Drift for 10 Seconds?+ 0 6A: Test Left Leg Motor Drift - No Drift for 5 Seconds?+ 0 6B: Test Right Leg Motor Drift - No Drift for 5 Seconds?+ 0 7: Test Limb Ataxia (FNF/Heel-Rowley) - No Ataxia?+ 0 8: Test Sensation - Mild-Moderate Loss: Less Sharp/More Dull?+ 1 9: Test Language/Aphasia - Normal; No aphasia?+ 0 10: Test Dysarthria - Normal?+ 0 11: Test Extinction/Inattention - No abnormality?+ 0 NIHSS Score:?2 NIHSS Free Text :?left face decreased sensation to LT, question of right upper quadrant VF deficit in the right eye only, unclear if new or chronic, left eye appears intact Pre-Morbid Modified Wheatley Scale: 0 Points = No symptoms at all Spoke with :?ED physician This consult was conducted in real time using interactive audio and video technology. Patient was informed of the technology being used for this visit and agreed to proceed. Patient located in hospital and provider located at home /office setting. Patient is being evaluated for possible acute neurologic impairment and high probability of imminent or life-threatening deterioration. I spent total of 40 minutes providing care to this patient, including time for face to face visit via telemedicine, review of medical records, imaging studies and discussion of findings with providers, the patient and/or family. Dr Ike Ruffin [facility] For Inpatient follow-up with [facility] physician please call [facility] at . As we are not an outpatient service for any post hospital discharge needs please contact the hospital for assistance. If you have any questions for the [facility] physicians or need to reconsult for clinical or diagnostic changes please contact us via [facility] at . Non-radiologist review of imaging performed to assist with emergent clinical decision-making. Remote physician workstations do not possess the same resolution, calibration, or diagnostic capabilities as hospital-based radiology reading stations, and formal radiologist read is necessary. Signature :Sylvia Ruffin
[2025-02-15 22:08] VITALS: BP 193/64; PULSE 75; RESP 16; O2SAT 98
[2025-02-15 22:11] LABS: Alanine Aminotransferase 28 U/L (10-49); Albumin, Serum 4.7 gm/dL (3.4-4.8); Albumin/Globulin Ratio 2.5 (1.2-2.2); Alkaline Phosphatase 97 U/L (46-116); Anion Gap 9 (7-16); Aspartate Amino Transferase 31 U/L (0-34); BUN/Creatinine Ratio 17 Ratio (12-20); Bilirubin,Total 0.4 mg/dL (0.3-1.2); Blood Urea Nitrogen 10 mg/dL (9-23); Calcium 10.0 mg/dL (8.3-10.6); Calcium (Corrected) 10.0 mg/dL (8.5-10.1); Carbon Dioxide 28.3 mMol/L (20.0-31.0); Chloride 103 mMol/L (98-107); Creatinine (Component) 0.6 mg/dL (0.6-1.3); Globulin 1.9 gm/dL (2.3-3.5); Glucose 137 mg/dL (74-106); Magnesium 1.6 mg/dL (1.6-2.6); Osmolality,Calculated 280 (275-295); Potassium 4.1 mMol/L (3.4-5.1); Sodium 140 mMol/L (136-145); Total Protein 6.6 gm/dL (5.7-8.2); Troponin I < 0.020 ng/mL (0.0-0.045); eGFR > 60 See Note
--- NOTE | 2025-02-15 22:11 | PC.NURSE ---
[facility] CONSULT MADE 2120 #[id number]
[2025-02-15 22:21] VITALS: BP 193/64; PULSE 69
[2025-02-15] MEDS: hydrALAZINE INJ 20 MG/ML VIAL 5 MG IVP (22:21)
[2025-02-15 22:46] VITALS: TEMP 36.7
[2025-02-15 22:53] LABS: Collection Type, Urine Clean Catch; Squamous Epithelial Cell,Urine 0 /hpf (0-5)
[2025-02-15 22:55] LABS: C-Reactive Protein < 0.5 mg/dL (0.0-0.9)
[2025-02-15 22:57] LABS: Bilirubin,Urine Negative (Negative); Blood,Urine Negative (Negative); Clarity,Urine Clear (Clear/Hazy); Color,Urine Colorless (Lt Yel-Yel); Culture Indicated,Urine Not Indicated; Glucose, Urine Negative (Negative); Ketones,Urine Negative (Negative); Leukocyte Esterase,Urine Positive (Negative); Nitrite,Urine Negative (Negative); PH,Urine 6.5 (5.0-7.0); Protein,Urine Negative (Neg - Trace); RBC,Urine 1 /hpf (0-3); Specific Gravity,Urine 1.015 (1.001-1.035); Urobilinogen,Urine Negative mg/dL (0.0-1.0); WBC,Urine 4 /hpf (0-5)
[2025-02-15 23:03] LABS: Amphetamine/Methamp Scrn,U Negative (Negative); Barbiturate Screen,Urine Negative (Negative); Benzodiazepines Screen,Urine Negative (Negative); Benzoylecgonine Screen, Ur Negative (Negative); Fentanyl Screen,Urine Negative (Negative); Opiate Screen,Urine Negative (Negative); THC Screen,Urine Negative (Negative)
[2025-02-15 23:33] VITALS: BP 156/66; PULSE 68; RESP 18; TEMP 36.7; O2SAT 98
[2025-02-16] VITALS (9 sets, daily range): BP systolic 113–180; BP diastolic 50–87; PULSE 63–95; RESP 10–21; TEMP 35.8–37.1; O2SAT 94–100
--- NOTE | 2025-02-16 | XR_ITS ---
Examinations: MRI Brain without intravenous contrast. MRA brain without intravenous contrast. MRA carotids without intravenous contrast 3-D vascular reconstructions Date and time of exam: February 16, 2025, at 1657 hours INDICATIONS: Stroke alert yesterday, onset generalized weakness and focal neurologic deficits Technique: Multiple axial and sagittal images of the brain have been obtained MRA brain carotid images without contrast obtained, including 3-D postprocessing, vascular maximum intensity projection images Findings: Sellaturcica is not enlarged. The optic chiasm and infundibular stalk are not remarkable. Prepontine and interpeduncular cisterns are not enlarged. No localized enlargement of the medulla or kymberly. Fourth ventricle and cerebellar tonsils normal in position. Subacute hemorrhage is not seen. Fourth ventricle is midline. Mass in the cerebellopontine angle region is not evident. 7th and 8th nerve complexes exhibits symmetry. Globes are symmetrical with no retro-orbital mass. Increased white matter signal moderate Diffusion-weighted images demonstrate no focus of restricted diffusion Mass-effect upon the ventricular system is not identified. MRA carotid images degraded by patient motion. MRA brain images no large vessel occlusions Impression: Negative for acute hemorrhage mass effect or midline shift No acute infarct Moderate chronic microvascular white matter change
--- NOTE | 2025-02-16 00:32 | PRELIM_ITS ---
CT angiogram of the head and neck with intravenous contrast (axial sections with sagittal and coronal reformats) February 15, 2025 2132 hours Clinical History: Focal neuro deficit, stroke suspected Comparison: None available at the time of this report. Findings: Head: The internal carotid, middle and anterior cerebral arteries are patent bilaterally. The intracranial vertebral arteries are patent. The vertebrobasilar junction, basilar and posterior cerebral arteries are patent. No evidence of large vessel occlusion, critical stenosis or aneurysm. Neck: The aortic arch to the extent visualized as well as the origins of the right brachiocephalic, left common carotid, and left subclavian arteries are patent. The common carotid arteries, carotid bulbs, and internal and external carotid arteries are patent. The origins of the vertebral arteries are unremarkable. The left vertebral artery is dominant. No evidence of vascular occlusion, critical stenosis, dissection or aneurysm. The soft tissues of the neck are unremarkable. Sternal wires. No acute fractures. Impression: Head: No evidence of large vessel occlusion, critical stenosis or aneurysm. Neck: No evidence of vascular occlusion, critical stenosis, dissection or aneurysm. Report Electronically Signed By: Shukri Mckeon 02/16/2025 12:32:12 AM [EST]
--- NOTE | 2025-02-16 01:16 | PRELIM_ITS ---
CT scan of the head without intravenous contrast (axial sections with sagittal and coronal reformats) February 15, 2025 2126 hours Clinical history: Focal neuro deficit, stroke suspected Comparison: None available at the time of this report. Findings: There is no evidence of intracranial hemorrhage, mass effect or midline shift. There are periventricular white matter hypodensities, compatible with chronic small vessel ischemia. There is mild volume loss. The calvarium is unremarkable. The mastoid air cells are clear. Mucosal inclusion cysts in the left maxillary sinus. Impression: No evidence of intracranial hemorrhage, mass effect or midline shift. Periventricular chronic small vessel ischemia and volume loss. Aspirin score 10. Report Electronically Signed By: Shukri Mckeon 02/16/2025 1:15:46 AM [EST]
--- NOTE | 2025-02-16 01:24 | ECHO_ITS ---
Patient Info Name: Caitlin Chavez Age: 79 years : 1945 Gender: Female Ht: 155 cm Wt: 76 kg BSA: 1.84 m2 BP: 150 / 76 mmHg HR: 68 bpm Exam Date: 02/18/2025 11:07 AM Admit Date: 02/16/2025 Site: [facility] Room Number: [id number] Patient Status: I Exam Type: CA echo doppler complete Outer Diameter Grinder Tool: Alea Parks Ordering Physician: Francis Mc Study Info Indications CVA work up - Contrast/Agitated Saline Contrast/Ag. Saline: Agitated Saline Amount: --- ml Primary Location: [id number] Left Ventricular Outflow Tract Name Value Normal LVOT 2D LVOT Diameter 1.9 cm LVOT Doppler LVOT Peak Velocity 132 cm/s LVOT Mean Gradient 3 mmHg LVOT VTI 30 cm LVOT VTI/AV VTI Ratio 0.9 LVOT Stroke Volume 86 ml Pulmonic Valve Name Value Normal PV Doppler PV Peak Velocity 109 cm/s PV Regurgitation Doppler NH Peak End Diastolic Velocity 145 cm/s Mitral Valve Name Value Normal MV Doppler MV Decel Door 249 cm/s2 MV PHT 90 ms MV Area (PHT) 2.4 cm2 4.0-5.0 MV Diastolic Function MV E Peak Velocity 77 cm/s MV A Peak Velocity 117 cm/s MV E/A 0.7 MV Annular TDI MV Septal e' Velocity 5.2 cm/s MV E/e' (Septal) 14.8 MV Lateral e' Velocity 9.3 cm/s MV E/e' (Lateral) 8.3 MV e' Average 7.24 cm/s MV E/e' (Average) 11.6 Tricuspid Valve Name Value Normal TV Regurgitation Doppler TR Peak Velocity 271 cm/s Estimated PAP/RSVP RA Pressure 3 mmHg <=5 PA Systolic Pressure 32 mmHg <36 RV Systolic Pressure 32 mmHg <36 Aortic Valve Name Value Normal AV 2D/MM AV Cusp Sep (MM) 1.5 cm AV Doppler AV Peak Velocity 162 cm/s AV Mean Gradient 5 mmHg AV VTI 35 cm AV Area (Cont Eq VTI) 2.5 cm2 >=3.0 AV Area (Cont Eq Saurabh) 2.3 cm2 AV DI (Saurabh) 0.81 AV Regurgitation 2D LVOT Area 2.8 cm2 AV Regurgitation Doppler AR Decel Door 274 cm/s2 AR PHT 378 ms Ventricles Name Value Normal LV Dimensions 2D/MM IVS Diastolic Thickness (2D) 1.0 cm 0.6-0.9 LVID Diastole (2D) 3.3 cm 3.8-5.2 LVIW Diastolic Thickness (2D) 1.0 cm 0.6-0.9 LVID Systole (2D) 2.2 cm 2.2-3.5 LVOT Diameter 1.9 cm LV Mass (2D Cubed) 94.57 g 67.00-162.00 LV Mass Index (2D Cubed) 52 g/m2 43-95 Relative Wall Thickness (2D) 0.61 <=0.42 IVS/LVIW Diastolic Thickness (2D) 1.00 0.00-1.50 LV Fractional Shortening/Ejection Fraction 2D/MM LV Fractional Shortening (2D) 33 % 27-45 LV EF (2D Teichholz) 63 % Atria Name Value Normal LA Dimensions LA Volume (4C A-L) 47 ml LA Volume (BP A-L) 52 ml Left Ventricle Left ventricular chamber dimension is normal. Left ventricular systolic function is normal with visually estimated ejection fraction of 60-65%. There is mild concentric hypertrophy noted in the left ventricle. Left ventricular segmental wall motion is normal. There is grade I diastolic dysfunction in the left ventricle. Right Ventricle Right ventricular chamber dimension is normal. Right ventricular systolic function is normal. Left Atrium Left atrial chamber dimension is mildly enlarged. Right Atrium Right atrial chamber dimension is normal. Aortic Valve The aortic valve is trileaflet. There is mild aortic valve sclerosis. There is no aortic valve stenosis with a peak velocity of 162 cm/s, mean gradient of 5 mmHg, and aortic valve area of 2.5 cm2. There is mild aortic valve regurgitation. Pulmonic Valve The pulmonic valve is normal. There is no pulmonic valve stenosis. There is mild pulmonic regurgitation. Mitral Valve The mitral valve has thickened leaflets. There is no mitral valve stenosis. There is mild mitral valve regurgitation. Tricuspid Valve The tricuspid valve leaflets are normal. There is no tricuspid valve stenosis. There is mild tricuspid valve regurgitation. No pulmonary hypertension, estimated pulmonary arterial systolic pressure is 32 mmHg and systemic blood pressure of 150 mmHg in systole. Pericardium/Pleural The pericardium appears normal. There is trivial pericardial effusion with no tamponade. No pleural effusion visualized. Inferior Vena Cava Normal inferior vena cava with >50% collapse upon inspiration consistent with normal right atrial pressure, 3 mmHg. Aorta The aortic measurements are indexed to age and body surface area. The aortic root at the sinus of Valsalva is not well visualized. The prox ascending aorta is not well visualized. Summary 1. Left ventricle size is normal and systolic function is normal. Estimated ejection fraction is 60-65%. There is grade I diastolic dysfunction. There is mild concentric hypertrophy noted. 2. Right ventricle chamber size is normal and systolic function is normal. Estimated RVSP is 32 mmHg. Mild HTN. 3. There is mild aortic valve sclerosis with no stenosis and mild regurgitation. 4. There is mild mitral valve regurgitation. 5. There is mild tricuspid valve regurgitation. 6. mild pulmonic valve regurgitation. 7. Normal IVC with estimated RA pressure 3 mmHg. 8. The left atrium is mildly enlarged. The right atrium is normal. 9. Negative bubble study. Report Signatures Finalized by Bg Roberts on 02/18/2025 04:46 PM
--- NOTE | 2025-02-16 01:30 | ESHP_ITS ---
Documentation for date of: 02/16/25 [facility] History of Present Illness Chief complaint: Left facial numbness History of present illness: 79-year-old female with past medical history of hypertension, hyperlipidemia, history of atrial fibrillation on Eliquis, diabetes who presented to the ED due to left-sided facial numbness and generalized weakness. Patient states that his symptom onset was around 8 PM of 02/15/2025. She states she has been feeling short of breath with intermittent palpitations past 5 to 10 days. She states she checked her blood pressure at home was found to be around 210 systolic and due to her left facial numbness decided to come to the ED. Denies fever, chills, shortness of breath, chest pain, changes in urinary/bowel habits. In the ED stroke alert was called patient will be admitted for CVA workup. ED course: Vitals on arrival BP 191/97, HR 73, saturating 95% on room air, labs unremarkable, CT of the head negative for acute hemorrhage, midline shift, mass effect, CTA head/neck negative for LVO. In the ED patient received hydralazine 5 mg IV x 1. PMHx: As above SX Hx: Hysterectomy, open aortic aneurysm and valve repair, Social Hx: Denies alcohol use, denies cigarette use, denies illicit substances including THC FH X: Unknown Exam Vital Signs Temp Pulse Resp BP Pulse Ox O2 Del Method 98.0 F 70 19 166/87 H 96 Room Air 02/15/25 23:33 02/16/25 00:05 02/16/25 00:05 02/16/25 00:05 02/16/25 00:05 02/16/25 00:05 Narrative Exam Physical Exam GENERAL: NAD, AAOx3 HEENT: Moist mucosa. Eyes open, symmetrical, & clear CARDIO: Heart RRR, no obvious murmurs, sternotomy scar well healed PULM: No noted coughing/dyspnea CTA B/L, no R/W/R GI: Abdomen soft, nondistended, no pain on palpation. BSx4 SKIN/MSK/EXT: No wounds/rashes/edema/amputations, no pain on palpation. Pedal pulses present B/L NEURO: AAOx3, no focal neuro deficits, able to move all 4 extremities Results: Labs 02/16/25 04:20 02/16/25 04:20 Labs: Short CBC 02/15/25 Range/Units 21:21 WBC 6.9 (3.6-11.0) Thou/mm3 Hgb 13.2 (12.0-16.0) g/dL Hct 38.9 (36.0-46.0) % Plt Count 211 (140-440) Thou/mm3 BMP 02/15/25 21:21 Sodium 140 Potassium 4.1 Chloride 103 Carbon Dioxide 28.3 BUN 10 Creatinine 0.6 Glucose 137 H Calcium 10.0 Cardiac Enzymes 02/15/25 Range/Units 21:21 Troponin I < 0.020 (0.0-0.045) ng/mL Liver Function 02/15/25 Range/Units 21:21 Total Bilirubin 0.4 (0.3-1.2) mg/dL AST 31 (0-34) U/L ALT 28 (10-49) U/L Alkaline Phosphatase 97 (46-116) U/L Albumin 4.7 (3.4-4.8) gm/dL Urine 02/15/25 Range/Units 10:30 Urine Color Colorless A (Lt Yel-Yel) Urine Clarity Clear (Clear/Hazy) Urine pH 6.5 (5.0-7.0) Ur Specific [place] 1.015 (1.001-1.035) Urine Protein Negative (Neg - Trace) Urine Glucose (UA) Negative (Negative) Quality Measures Quality Measures stroke Suspected type of Stroke: Acute Ischemic Last known well (date): 02/15/25 Tenecteplase given: Reason(s) Tenecteplase not given: Use of NOAC (eliquis, xarelto, or pradaxa) not given Rehab services: PT evaluation ordered and Speech Language Pathology eval ordered VTE Prophylaxis: pharmaceutical Antithrombotic by day 2:: not indicated (describe) Statin ordered: >75 y/o moderate or high intensity dose Anticoagulation ordered for A-fib or flutter (current or hx): not indicated Advance care planning discussed with:: patient Medications Home Medications and Allergies Home Medications ?Medication ?Instructions ?Recorded ?Confirmed ?Type aspirin 81 mg tablet,delayed 81 mg PO QDAY 05/29/18 History release omeprazole 20 mg capsule,delayed 40 mg PO QDAY 9 02/16/25 History release ferrous sulfate 325 mg (65 mg 325 mg PO QDAY 07/16/22 02/16/25 History iron) tablet losartan 100 1 tab PO QDAY 07/16/2202/16 History mg-hydrochlorothiazide 12.5 mg tablet metformin 500 mg tablet 500 mg PO BIDWMEAL 07/16/22 02/16/25 History potassium chloride 20 mEq 20 meq PO QDAY 07/16/2201/27 History tablet,extended release simvastatin 20 mg tablet 20 mg PO QPM 07/16/22 History Allergies Allergy/AdvReac Type Severity Reaction Status Date / Time Penicillins Allergy Unknown Verified 02/15/25 21:08 Visit Medications Acetaminophen (Acetaminophen 325 Mg Tablet) 650 mg PO Q6H PRN PRN Reason: Fever >100.4 Stop: 03/18/25 01:18 Acetaminophen (Acetaminophen 325 Mg Tablet) 650 mg PO Q6H PRN PRN Reason: PAIN SCALE 1-3 (mild Stop: 03/18/25 01:18 Aspirin (Aspirin Ec 81 Mg Tabec) 81 mg PO QDAY REPLACED BY [facility] Stop: 03/18/25 08:59 Atorvastatin Calcium (Atorvastatin Calcium 20 Mg Tablet) 40 mg PO HS REPLACED BY [facility] Stop: 03/18/25 20:59 Enoxaparin Sodium (Enoxaparin Sod Inj 40 Mg/0.4 Ml Syringe) 40 mg SC QDAY REPLACED BY [facility] Stop: 03/02/25 08:59 Sodium Chloride (Ns) 1,000 mls @ 75 mls/hr IV .[id number] REPLACED BY [facility] Stop: 03/18/25 01:29 Labetalol HCl (Labetalol Inj 5 Mg/Ml Vial 4 Ml) 10 mg IVP Q15M PRN PRN Reason: hypertension Ondansetron HCl (Ondansetron Inj 2 Mg/Ml Inj 2 Ml) 4 mg IVP Q4HR PRN PRN Reason: NAUSEA OR VOMITING Stop: 03/17/25 21:18 Ondansetron HCl (Ondansetron Inj 2 Mg/Ml Inj 2 Ml) 4 mg IVP Q6H PRN; Protocol PRN Reason: NAUSEA OR VOMITING Stop: 03/18/25 01:18 Pantoprazole Sodium (Pantoprazole Inj 40 Mg Vial) 40 mg IVP QDAY INA Stop: 03/18/25 08:59 Sennosides (Senna Tablet) 1 tab PO QDAY INA; Protocol Stop: 03/18/25 08:59 Discontinued Medications Hydralazine HCl (Hydralazine Inj 20 Mg/Ml Vial) 5 mg IVP X1 ONE Stop: 02/15/25 22:04 Last Admin: 02/15/25 22:21 Dose: 5 mg Assessment & Plan Plan 79-year-old female with past medical history as stated above who presented to the ED with left facial numbness. Patient admitted for CVA workup. #Stroke like symptoms #CVA Rule out #Left-sided facial numbness #Hypertensive urgency Last well-known 8 PM Not a candidate for thrombolytics due to Eliquis use Imaging negative for acute hemorrhage, midline shift, mass effect, LVO At home takes losartan 100 mg hydrochlorothiazide 12.5 mg ? MRI stroke protocol ? Aspirin 81 mg ? Atorvastatin 40 mg ? Echo ordered ? Neurochecks every 4 hours ? Maintenance fluids ? PT, speech therapy ? In house Neurology consulted ? Labetalol as needed ? Permissive hypertension for first 24 hours #Atrial fibrillation #Hypertension #Hyperlipidemia #Diabetes mellitus type 2 At home takes losartan 100 mg hydrochlorothiazide 12.5 mg, simvastatin, Eliquis 2.5mg Currently NSR ? Hold AC at this time ? SSI ? Hypoglycemia protocol in place Disposition: tele Fluids: NS Feeding: NPO Thrombo prophylaxis: Lovenox Gastric Ulcer prophylaxis: Pantoprazole 40 mg IV daily CODE STATUS: Full code Case discussed with my attending Dr. John Mc MD PGY-2 Attending Provider Attestation/Addendum After examination of the patient and review of the clinical data I feel that this patient needs admission to the hospital for further treatment/evaluation. Plan of care discussed with patient and is in agreement. I Sintia Lopez MD, attest that I was physically present for lundberg portions of evaluation, and examined patient, labs and imagings and plan of care were discussed with IM residents team, and I agree with the findings and plans documented above.
[2025-02-16] MEDS: SODIUM CHLORIDE 0.9% 1000 ML 1,000 ML 75 ML IV (02:30)
[2025-02-16] MEDS: ACETAMINOPHEN 325 MG TABLET 650 MG PO (02:50)
[2025-02-16 05:03] LABS: Basophils # (Auto) 0.0 Thou/mm3 (0.0-0.2); Basophils % (Auto) 0 % (0-2.5); Eosinophils # (Auto) 0.2 Thou/mm3 (0.0-0.5); Eosinophils % (Auto) 3 % (0-10); Hematocrit 38.5 % (36.0-46.0); Hemoglobin 13.1 g/dL (12.0-16.0); Immature Granulocytes Auto 0.01 Thou/mm3 (0.00-0.00); Lymphocytes # (Auto) 2.2 Thou/mm3 (1.0-4.8); Lymphocytes % (Auto) 34 % (10-50); Mean Corpuscular HGB Conc 34.0 g/dl (31.0-37.0); Mean Corpuscular Hemoglobin 31.7 pg (25.0-35.0); Mean Corpuscular Volume 93 fL (80-100); Monocytes # (Auto) 0.6 Thou/mm3 (0.0-0.8); Monocytes % (Auto) 9 % (0-12); Neutrophils # (Auto) 3.5 Thou/mm3 (1.8-7.7); Neutrophils % (Auto) 54 % (37-80); Nucleated Red Blood Cell # 0.00 Thou/mm3 (0.00-0.00); Nucleated Red Blood Cell % 0 /100 WBC (0); Platelet Count 185 Thou/mm3 (140-440); RDW Standard Deviation 42.9 fL (36.4-46.3); Red Blood Count 4.13 Miln/mm3 (4.00-5.20); White Blood Count 6.4 Thou/mm3 (3.6-11.0)
[2025-02-16 05:26] LABS: Alanine Aminotransferase 22 U/L (10-49); Albumin, Serum 4.1 gm/dL (3.4-4.8); Albumin/Globulin Ratio 2.2 (1.2-2.2); Alkaline Phosphatase 85 U/L (46-116); Anion Gap 9 (7-16); Aspartate Amino Transferase 27 U/L (0-34); BUN/Creatinine Ratio 15 Ratio (12-20); Bilirubin,Total 0.5 mg/dL (0.3-1.2); Blood Urea Nitrogen 9 mg/dL (9-23); Calcium 9.3 mg/dL (8.3-10.6); Calcium (Corrected) 9.3 mg/dL (8.5-10.1); Carbon Dioxide 28.8 mMol/L (20.0-31.0); Cardiac Risk Estimate 3.9 RATIO (3.7-5.6); Chloride 105 mMol/L (98-107); Cholesterol 152 mg/dL (132-200); Creatinine (Component) 0.6 mg/dL (0.6-1.3); Globulin 1.9 gm/dL (2.3-3.5); Glucose 144 mg/dL (74-106); HDL Cholesterol 39 mg/dL (40-60); LDL Cholesterol,Calculated 72 mg/dL (0-130); Magnesium 1.7 mg/dL (1.6-2.6); Osmolality,Calculated 286 (275-295); Potassium 4.1 mMol/L (3.4-5.1); Sodium 143 mMol/L (136-145); Thyroid Stimulating Hormone 2.47 uIU/mL (0.55-4.78); Total Protein 6.0 gm/dL (5.7-8.2); Triglycerides 204 mg/dL (30-150); eGFR > 60 See Note
[2025-02-16 05:38] LABS: Glucose Estimated Average 192 mg/dL (80-131); Hemoglobin A1C 8.3 % Hgb (4.8-6.0)
[2025-02-16 05:47] LABS: Sed Rate (ESR) 5 mm/hr (0-30)
[2025-02-16] MEDS: ENOXAPARIN SOD INJ 40 MG/0.4 ML SYRINGE SC (08:23)
[2025-02-16] MEDS: ASPIRIN EC 81 MG TABEC PO (08:24)
--- NOTE | 2025-02-16 11:20 | PC.NURSE ---
Pt taken to floor by this RN and student recruiter, pt remained connected to tele, no incident. Once to floor and pt transferred to bed from [facility], nurse call light was pressed to inform nurse pt was in room, was told staff is coming, after getting pt situated no staff in room, this RN went to community [facility] to inform no staff has came to bedside, and she said MACHINE PIE MAKER at nurses station is going in now.
--- NOTE | 2025-02-16 12:46 | ESPR_ITS ---
<Statement entered by Tru Adorno MD - 02/16/25 17:51> Patient seen and examined at bedside. I discussed and supervised with the software development intern physician who took care of this patient. I personally saw and examined the patient. I agree with most of the assessment and plan. Plan of care discussed with attending Dr. Nieves. Tru Adorno MD PGY-2 Documentation for date of: 02/16/25 Subjective Subjective Interval history: MRI and echo is still pending. Still holding Eliquis. Patient currently has generalized weakness, otherwise does not have any other symptoms. According to her daughter patient's systolic blood pressure was over 200. One of the differential diagnosis for her symptom is hypertensive emergency. Currently holding hypertension medication until 24 hour yoly. Labs reviewed and patient examined at the bedside. Denies chest pain, palpation, SOB, abdominal pain, N/V, fevers or chills. Exam Vital Signs Temp Pulse Resp BP Pulse Ox O2 Del Method 96.4 F L 63 19 155/65 H 94 L Room Air 02/16/25 12:00 02/16/25 12:00 02/16/25 12:00 02/16/25 12:00 02/16/25 12:00 02/16/25 12:00 Narrative Exam General: No acute distress, well nourished, AAO x3. Eye: PERRL, EOMI, normal conjunctiva, no scleral icterus HENT: Normocephalic, atraumatic, hearing intact to conversation at normal volume, moist oral mucosa Neck: Supple, non-tender, no JVD, no lymphadenopathy Lungs: Non-labored respirations, symmetric chest rise, Clear to auscultate bilaterally, No wheezing, rhonchi, crackles Heart: Peripheral pulses intact bilaterally, Regular Rate and Rhythm. Abdomen: Soft, non-tender, non-distended, no palpable masses Musculoskeletal: Normal range of motion and strength, No cyanosis or edema, No visible joint swelling Skin: Skin is warm, dry, no rashes or lesions. Psychiatric: Cooperative, appropriate mood and affect, Awake and alert, not agitated Neuro: Cranial nerves II-XII grossly intact. Strength 5/5 throughout. Sensations intact to light touch. Objective Labs 02/16/25 04:20 02/16/25 04:20 Labs: Laboratory Results - last 24 hr 02/15/25 02/15/25 02/16/25 10:30 21:21 04:20 WBC 6.9 6.4 RBC 4.18 4.13 Hgb 13.2 13.1 Hct 38.9 38.5 MCV 93 93 MCH 31.6 31.7 MCHC 33.9 34.0 RDW Std Deviation 42.6 42.9 Plt Count 211 185 Neut % (Auto) 53 54 Lymph % (Auto) 36 34 [place] % (Auto) 8 9 Eos % (Auto) 2 3 Baso % (Auto) 0 0 Neut # (Auto) 3.6 3.5 Lymph # (Auto) 2.5 2.2 [place] # (Auto) 0.6 0.6 Eos # (Auto) 0.2 0.2 Baso # (Auto) 0.0 0.0 Immature Gran # (Auto) 0.02 H 0.01 H Absolute Nucleated RBC 0.00 0.00 Immature Gran % 0 0 Nucleated RBC % 0 0 ESR 5 PT 10.4 INR 1.0 APTT 27.7 Sodium 140 143 Potassium 4.1 4.1 Chloride 103 105 Carbon Dioxide 28.3 28.8 Anion Gap 9 9 BUN 10 9 Creatinine 0.6 0.6 Estim Creat Clear Calc Not Performed. Not Performed. eGFR > 60 > 60 BUN/Creatinine Ratio 17 15 Glucose [address] Glu mg/dL 192 H Hemoglobin A1c 8.3 H Calculated Osmolality 280 286 Calcium 10.0 9.3 Corrected Calcium 10.0 9.3 Magnesium 1.6 1.7 Total Bilirubin 0.4 0.5 AST 31 27 ALT 28 22 Alkaline Phosphatase 97 85 Troponin I < 0.020 C-Reactive Prot, Quant < 0.5 Total Protein 6.6 6.0 Albumin 4.7 4.1 D Globulin 1.9 L 1.9 L Albumin/Globulin Ratio 2.5 H 2.2 Triglycerides 204 H Cholesterol 152 LDL Cholesterol, Calc 72 HDL Cholesterol 39 L Cholesterol/HDL Ratio 3.9 TSH 2.47 Ur Collection Type Clean Catch Urine Color Colorless A Urine Clarity Clear Urine pH 6.5 Ur Specific [place] 1.015 Urine Protein Negative Urine Glucose (UA) Negative Urine Ketones Negative Urine Blood Negative Urine Nitrite Negative Urine Bilirubin Negative Urine Urobilinogen (Auto) Negative Ur Leukocyte Esterase Positive Urine RBC 1 Urine WBC 4 Ur Squamous Epith Cells 0 Urine Bacteria None Ur Culture Indicated? Not Indicated Urine Opiates Screen Negative Urine Fentanyl Screen Negative Ur Barbiturates Screen Negative U Amphetamin/Meth Scrn Negative U Benzodiazepines Scrn Negative U Cocaine Metab Screen Negative U Marijuana (THC) Screen Negative Quality Measures Quality Measures stroke Suspected type of Stroke: Acute Ischemic Last known well (date): 02/15/25 Tenecteplase given: Reason(s) Tenecteplase not given: Use of NOAC (eliquis, xarelto, or pradaxa) not given Rehab services: PT evaluation ordered VTE Prophylaxis: mechanical Antithrombotic by day 2:: ordered Statin ordered: >75 y/o moderate or high intensity dose Anticoagulation ordered for A-fib or flutter (current or hx): contraindicated Advance care planning discussed with:: patient Assessment & Plan Assessment Current Active Medications: Generic Name Dose Route Start Last Admin Trade Name Freq PRN Reason Stop Dose Admin Acetaminophen 650 mg 02/16/25 01:19 Acetaminophen 325 Mg Tablet PO 03/18/25 01:18 Q6H PRN Fever >100.4 Acetaminophen 650 mg 02/16/25 01:19 02/16/25 02:50 Acetaminophen 325 Mg Tablet PO 03/18/25 01:18 650 mg Q6H PRN Administration PAIN SCALE 1-3 (mild Aspirin 81 mg 02/16/25 09:00 02/16/25 08:24 Aspirin Ec 81 Mg Tabec PO 03/18/25 08:59 81 mg QDAY INA Administration Atorvastatin Calcium 40 mg 02/16/25 21:00 Atorvastatin Calcium 20 Mg Tablet PO 03/18/25 20:59 HS INA Dextrose 25 ml 02/16/25 01:40 Dextrose 50%-Water Inj 50 Ml Syringe IV 03/18/25 01:39 Q15MIN PRN BG 50-70 responsive npo pt Dextrose 50 ml 02/16/25 01:40 Dextrose 50%-Water Inj 50 Ml Syringe IV 03/18/25 01:39 Q15MIN PRN BG <50 OR BG <70 & pt unresponsive Enoxaparin Sodium 40 mg 02/16/25 09:00 02/16/25 08:23 Enoxaparin Sod Inj 40 Mg/0.4 Ml Syringe SC 03/02/25 08:59 40 mg QDAY INA Administration Glucagon 1 mg 02/16/25 01:40 Glucagon Inj 1 Mg Vial IM Q15MIN PRN BG <70, and no IV access Insulin Human Lispro 0 unit 02/16/25 07:30 02/16/25 08:10 Insulin Lispro (Admelog) 1 Unit/0.01 Ml Unit SC 03/18/25 07:29 Not Given AC INA Protocol Labetalol HCl 10 mg 02/16/25 07:16 Labetalol Inj 5 Mg/Ml Vial 4 Ml IVP Q15M PRN hypertension Ondansetron HCl 4 mg 02/16/25 01:19 Ondansetron Inj 2 Mg/Ml Inj 2 Ml IVP 03/18/25 01:18 Q6H PRN NAUSEA OR VOMITING Protocol Pantoprazole Sodium 40 mg 02/16/25 09:00 02/16/25 08:23 Pantoprazole Inj 40 Mg Vial IVP 03/18/25 08:59 40 mg QDAY INA Administration Sennosides 1 tab 02/16/25 09:00 02/16/25 08:24 Senna Tablet PO 03/18/25 08:59 1 tab QDAY INA Administration Protocol Plan 79-year-old female with past medical history as stated above who presented to the ED with left facial numbness. Patient admitted for CVA workup. #CVA workup #Left-sided facial numbness #Hypertensive urgency -Last well-known 8 PM -Not a candidate for thrombolytics due to Eliquis use -Imaging negative for acute hemorrhage, midline shift, mass effect, LVO -At home takes losartan 100 mg hydrochlorothiazide 12.5 mg Plan: ? MRI stroke protocol ? Aspirin 81 mg ? Atorvastatin 40 mg ? Echo ordered ? Neurochecks every 4 hours ? Maintenance fluids ? PT, speech therapy ? In house Neurology consulted ? Labetalol as needed ? Permissive hypertension for first 24 hours #Hx of Atrial fibrillation #Hypertension #Hyperlipidemia #Diabetes mellitus type 2 -At home takes losartan 100 mg hydrochlorothiazide 12.5 mg, simvastatin, Eliquis 2.5mg -Currently NSR Plan: ? Hold AC at this time ? SSI ? Hypoglycemia protocol in place Disposition: tele Fluids: NS Feeding: NPO Thrombo prophylaxis: Lovenox Gastric Ulcer prophylaxis: Pantoprazole 40 mg IV daily CODE STATUS: Full code Attending Provider Attestation/Addendum I have seen and examined the patient. I was physically present for the lundberg portions of the services provided including history, physical exam, diagnosis, treatment plans and orders. I agree with assessment and plan of care as documented by residents. Even though this this note was carefully revised there may still be minor errors in radioisotope technologist due to voice recognition software. Renato Nieves MD
[2025-02-16] MEDS: INSULIN LISPRO (AdmeLOG) 1 UNIT/0.01 ML UNIT SC (17:48)
[2025-02-16] MEDS: ATORVASTATIN CALCIUM 20 MG TABLET 40 MG PO (20:27)
--- NOTE | 2025-02-16 21:40 | PD.NEUROPROG ---
Documentation for date of: 02/16/25 Subjective Subjective Interval history: Patient was seen in telemetry today at the bedside. No new symptoms reported. No recurrence of similar symptoms after admission other than intermittent paresthesias periorally. Anxious to discharge home. Exam - Neurology Vital Signs Temp Pulse Resp BP Pulse Ox O2 Del Method 97.5 F 69 21 H 156/70 H 96 Room Air 02/16/25 20:00 02/16/25 20:00 02/16/25 20:00 02/16/25 20:00 02/16/25 20:00 02/16/25 20:00 Narrative Exam GENERAL APPEARANCE: Well hydrated, well-nourished in no acute distress. HEENT: Normocephalic, atraumatic, extraocular movements intact. Pupils: Equal reacting to light and accommodation, tympanic membranes are bilaterally intact. There is no bulge or retraction. Throat without erythema or exudate. Moist oral mucosa. NECK: Supple, no JVD or bruits. CARDIOVASULAR: Heart: S1, S2 heard, regular without S3-S4 or murmur no rubs or gallops. LUNGS/CHEST: Clear to auscultation bilaterally. No rails, rhonchi, or wheezing. Normal inspection. ABDOMEN: Soft, nontender, with normal bowel sounds. No pulsatile masses. No rebound, rigidity, or guarding. Normal inspection and palpation. EXTREMITIES: Normal inspection and palpation. No edema, clubbing or cyanosis. SKIN: Warm and dry without rashes. Normal inspection. MUSCULOSKELETAL: No cervical, thoracic, lumbar or midline bony tenderness. Normal inspection. NEURO: Alert, awake and oriented x3. Cranial nerves: II through XII grossly intact. Speech and language: Normal with no dysarthria or dysphasia. Motor system: Tone and bulk: Normal: Strength: 5 out of 5 in all 4 extremities; No pronator drift noted. Deep tendon reflexes: 2+ bilaterally symmetrical. Plantar reflex: Downgoing bilaterally. Sensory system: Intact to all modalities of sensation bilaterally. Coordination: Intact to tfebrh-rvgu-hclmi and nurh-dzfz-nmwq test bilaterally. No ataxia, no dysmetria, or dysdiadochokinesia noted. No intention tremors noted. Gait: Normal. Toe, heel, tandem walk all are normal. Romberg: Negative. No signs of meningeal irritation noted. PSYCHIATRIC: Normal mood and affect. Objective Labs 02/16/25 04:20 02/16/25 04:20 Labs: Laboratory Results - last 24 hr 02/15/25 02/15/25 02/16/25 10:30 21:21 04:20 WBC 6.4 RBC 4.13 Hgb 13.1 Hct 38.5 MCV 93 MCH 31.7 MCHC 34.0 RDW Std Deviation 42.9 Plt Count 185 Neut % (Auto) 54 Lymph % (Auto) 34 [place] % (Auto) 9 Eos % (Auto) 3 Baso % (Auto) 0 Neut # (Auto) 3.5 Lymph # (Auto) 2.2 [place] # (Auto) 0.6 Eos # (Auto) 0.2 Baso # (Auto) 0.0 Immature Gran # (Auto) 0.01 H Absolute Nucleated RBC 0.00 Immature Gran % 0 Nucleated RBC % 0 ESR 5 PT 10.4 INR 1.0 APTT 27.7 Sodium 140 143 Potassium 4.1 4.1 Chloride 103 105 Carbon Dioxide 28.3 28.8 Anion Gap 9 9 BUN 10 9 Creatinine 0.6 0.6 Estim Creat Clear Calc Not Performed. Not Performed. eGFR > 60 > 60 BUN/Creatinine Ratio 17 15 Glucose [address] Glu mg/dL 192 H Hemoglobin A1c 8.3 H Calculated Osmolality 280 286 Calcium 10.0 9.3 Corrected Calcium 10.0 9.3 Magnesium 1.6 1.7 Total Bilirubin 0.4 0.5 AST 31 27 ALT 28 22 Alkaline Phosphatase 97 85 Troponin I < 0.020 C-Reactive Prot, Quant < 0.5 Total Protein 6.6 6.0 Albumin 4.7 4.1 D Globulin 1.9 L 1.9 L Albumin/Globulin Ratio 2.5 H 2.2 Triglycerides 204 H Cholesterol 152 LDL Cholesterol, Calc 72 HDL Cholesterol 39 L Cholesterol/HDL Ratio 3.9 TSH 2.47 Ur Collection Type Clean Catch Urine Color Colorless A Urine Clarity Clear Urine pH 6.5 Ur Specific [place] 1.015 Urine Protein Negative Urine Glucose (UA) Negative Urine Ketones Negative Urine Blood Negative Urine Nitrite Negative Urine Bilirubin Negative Urine Urobilinogen (Auto) Negative Ur Leukocyte Esterase Positive Urine RBC 1 Urine WBC 4 Ur Squamous Epith Cells 0 Urine Bacteria None Ur Culture Indicated? Not Indicated Urine Opiates Screen Negative Urine Fentanyl Screen Negative Ur Barbiturates Screen Negative U Amphetamin/Meth Scrn Negative U Benzodiazepines Scrn Negative U Cocaine Metab Screen Negative U Marijuana (THC) Screen Negative Assessment & Plan Assessment and plan (1) TIA (transient ischemic attack): Status: Acute Assessment and plan: Reassurance given to the patient regarding the negative MRI brain for acute infarction. Continue with aspirin 81 mg, Plavix 75 mg for 21 days followed by aspirin 81 mg alone along with statin. Follow-up with echocardiogram and lipid panel (2) Episode of hypertension: Status: Acute Assessment and plan: Improved
[2025-02-17] VITALS (13 sets, daily range): BP systolic 113–175; BP diastolic 52–88; PULSE 60–80; RESP 13–30; TEMP 35.9–36.7; O2SAT 93–96
[2025-02-17 05:20] LABS: Basophils # (Auto) 0.0 Thou/mm3 (0.0-0.2); Basophils % (Auto) 0 % (0-2.5); Eosinophils # (Auto) 0.2 Thou/mm3 (0.0-0.5); Eosinophils % (Auto) 3 % (0-10); Hematocrit 38.8 % (36.0-46.0); Hemoglobin 12.9 g/dL (12.0-16.0); Immature Granulocytes Auto 0.01 Thou/mm3 (0.00-0.00); Lymphocytes # (Auto) 2.1 Thou/mm3 (1.0-4.8); Lymphocytes % (Auto) 38 % (10-50); Mean Corpuscular HGB Conc 33.2 g/dl (31.0-37.0); Mean Corpuscular Hemoglobin 30.9 pg (25.0-35.0); Mean Corpuscular Volume 93 fL (80-100); Monocytes # (Auto) 0.5 Thou/mm3 (0.0-0.8); Monocytes % (Auto) 9 % (0-12); Neutrophils # (Auto) 2.7 Thou/mm3 (1.8-7.7); Neutrophils % (Auto) 50 % (37-80); Nucleated Red Blood Cell # 0.00 Thou/mm3 (0.00-0.00); Nucleated Red Blood Cell % 0 /100 WBC (0); Platelet Count 181 Thou/mm3 (140-440); RDW Standard Deviation 42.1 fL (36.4-46.3); Red Blood Count 4.17 Miln/mm3 (4.00-5.20); White Blood Count 5.5 Thou/mm3 (3.6-11.0)
[2025-02-17 06:01] LABS: Alanine Aminotransferase 21 U/L (10-49); Albumin, Serum 4.0 gm/dL (3.4-4.8); Albumin/Globulin Ratio 2.1 (1.2-2.2); Alkaline Phosphatase 96 U/L (46-116); Anion Gap 9 (7-16); Aspartate Amino Transferase 26 U/L (0-34); BUN/Creatinine Ratio 16 Ratio (12-20); Bilirubin,Total 0.4 mg/dL (0.3-1.2); Blood Urea Nitrogen 11 mg/dL (9-23); Calcium 9.2 mg/dL (8.3-10.6); Calcium (Corrected) 9.2 mg/dL (8.5-10.1); Carbon Dioxide 27.1 mMol/L (20.0-31.0); Chloride 107 mMol/L (98-107); Creatinine (Component) 0.7 mg/dL (0.6-1.3); Globulin 1.9 gm/dL (2.3-3.5); Glucose 172 mg/dL (74-106); Magnesium 1.5 mg/dL (1.6-2.6); Osmolality,Calculated 288 (275-295); Phosphorous 3.8 mg/dL (2.4-5.1); Potassium 4.0 mMol/L (3.4-5.1); Sodium 143 mMol/L (136-145); Total Protein 5.9 gm/dL (5.7-8.2); eGFR > 60 See Note
[2025-02-17] MEDS: ENOXAPARIN SOD INJ 40 MG/0.4 ML SYRINGE SC (08:22)
[2025-02-17] MEDS: PANTOPRAZOLE 40 MG TABLET PO (08:22)
[2025-02-17] MEDS: ASPIRIN EC 81 MG TABEC PO (08:22)
[2025-02-17] MEDS: Magnesium Sulfate 4 GM Ivpb 4 GM/50 ML BAG IV (09:00)
[2025-02-17] MEDS: ACETAMINOPHEN 325 MG TABLET 650 MG PO (09:08)
[2025-02-17] MEDS: CLOPIDOGREL BISULFATE 75 MG TABLET PO (10:05)
[2025-02-17 10:59] LABS: Cardiac Risk Estimate 3.7 RATIO (3.7-5.6); Cholesterol 149 mg/dL (132-200); HDL Cholesterol 40 mg/dL (40-60); LDL Cholesterol,Calculated 72 mg/dL (0-130); Triglycerides 184 mg/dL (30-150)
[2025-02-17] MEDS: INSULIN LISPRO (AdmeLOG) 1 UNIT/0.01 ML UNIT SC ×3 (11:26→21:06)
[2025-02-17] MEDS: Erythromycin Op Oint 0.5% 1 GM PACKET LEFT EYE ×3 (11:53→21:26)
--- NOTE | 2025-02-17 12:17 | ESPR_ITS ---
<Statement entered by Tru Adorno MD - 02/17/25 16:22> Patient seen and examined at bedside. I discussed and supervised with the production intern physician who took care of this patient. I personally saw and examined the patient. I agree with most of the assessment and plan. Patient on Eliquis and aspirin. Stroke ruled out, will continue treatment for TIA. Resumed home antihypertensives. Erythromycin eye drops for L eye bacterial conjunctivitis. Plan of care discussed with attending Dr. Nieves. Tru Adorno MD PGY-2 Documentation for date of: 02/17/25 Subjective Subjective Interval history: Patient was seen and examined at bedside. No acute events took place overnight. Patient reports feeling well. She admits to generalized weakness and describes it as shakiness when trying to get up from sitting or lying, which has been present for longer than this presentation. Denies chest pain, palpation, SOB, abdominal pain, N/V, fevers or chills. Patient also points to erythema and burning sensation in the left eye. Echo is still pending. Patient is past the window for permissive hypertension and medication can be resumed. Labs reviewed and patient examined at the bedside. Exam Vital Signs Temp Pulse Resp BP Pulse Ox O2 Del Method 96.7 F L 74 20 137/88 H 93 L Room Air 02/17/25 08:00 02/17/25 12:00 02/17/25 08:00 02/17/25 08:00 02/17/25 08:00 02/17/25 08:00 Narrative Exam General: No acute distress, well nourished, AAO x3. Eye: PERRL, EOMI, normal conjunctiva, no scleral icterus HENT: Normocephalic, atraumatic, hearing intact to conversation at normal volume, moist oral mucosa. Comjunctivitis of Lt eye with surface abnormality/papule wich appear purulent under. Neck: Supple, non-tender, no JVD, no lymphadenopathy Lungs: Non-labored respirations, symmetric chest rise, Clear to auscultate bilaterally, No wheezing, rhonchi, crackles Heart: Peripheral pulses intact bilaterally, Regular Rate and Rhythm. Abdomen: Soft, non-tender, non-distended, no palpable masses Musculoskeletal: Normal range of motion and strength, No cyanosis or edema, No visible joint swelling Skin: Skin is warm, dry, no rashes or lesions. Psychiatric: Cooperative, appropriate mood and affect, Awake and alert, not agitated Neuro: Cranial nerves II-XII grossly intact. Strength 5/5 throughout. Sensations intact to light touch. Objective Labs 02/18/25 05:32 02/18/25 05:32 Labs: Laboratory Results - last 24 hr 02/17/25 04:29 WBC 5.5 RBC 4.17 Hgb 12.9 Hct 38.8 MCV 93 MCH 30.9 MCHC 33.2 RDW Std Deviation 42.1 Plt Count 181 Neut % (Auto) 50 Lymph % (Auto) 38 [place] % (Auto) 9 Eos % (Auto) 3 Baso % (Auto) 0 Neut # (Auto) 2.7 Lymph # (Auto) 2.1 [place] # (Auto) 0.5 Eos # (Auto) 0.2 Baso # (Auto) 0.0 Immature Gran # (Auto) 0.01 H Absolute Nucleated RBC 0.00 Immature Gran % 0 Nucleated RBC % 0 Sodium 143 Potassium 4.0 Chloride 107 Carbon Dioxide 27.1 Anion Gap 9 BUN 11 Creatinine 0.7 Estim Creat Clear Calc Not Performed. eGFR > 60 BUN/Creatinine Ratio 16 Glucose 172 H Calculated Osmolality 288 Calcium 9.2 Corrected Calcium 9.2 Phosphorus 3.8 Magnesium 1.5 L Total Bilirubin 0.4 AST 26 ALT 21 Alkaline Phosphatase 96 Total Protein 5.9 Albumin 4.0 Globulin 1.9 L Albumin/Globulin Ratio 2.1 Triglycerides 184 H Cholesterol 149 LDL Cholesterol, Calc 72 HDL Cholesterol 40 Cholesterol/HDL Ratio 3.7 Quality Measures Quality Measures stroke Suspected type of Stroke: Unknown at this time Last known well (date): 02/15/25 Last known well (time): 21:00 Tenecteplase given: Reason(s) Tenecteplase not given: Use of NOAC (eliquis, xarelto, or pradaxa) not given Rehab services: PT evaluation ordered VTE Prophylaxis: pharmaceutical Antithrombotic by day 2:: ordered Statin ordered: >75 y/o moderate or high intensity dose Anticoagulation ordered for A-fib or flutter (current or hx): ordered Advance care planning discussed with:: patient Assessment & Plan Assessment Current Active Medications: Generic Name Dose Route Start Last Admin Trade Name Geoff PRN Reason Stop Dose Admin Acetaminophen 650 mg 02/16/25 01:19 Acetaminophen 325 Mg Tablet PO 03/18/25 01:18 Q6H PRN Fever >100.4 Acetaminophen 650 mg 02/16/25 01:19 02/17/25 09:08 Acetaminophen 325 Mg Tablet PO 03/18/25 01:18 650 mg Q6H PRN Administration PAIN SCALE 1-3 (mild Aspirin 81 mg 02/16/25 09:00 02/17/25 08:22 Aspirin Ec 81 Mg Tabec PO 03/18/25 08:59 81 mg QDAY INA Administration Atorvastatin Calcium 40 mg 02/16/25 21:00 02/16/25 20:27 Atorvastatin Calcium 20 Mg Tablet PO 03/18/25 20:59 40 mg HS INA Administration Clopidogrel Bisulfate 75 mg 02/17/25 10:00 02/17/25 10:05 Clopidogrel Bisulfate 75 Mg Tablet PO 03/19/25 09:59 75 mg QDAY INA Administration Dextrose 25 ml 02/16/25 01:40 Dextrose 50%-Water Inj 50 Ml Syringe IV 03/18/25 01:39 Q15MIN PRN BG 50-70 responsive npo pt Dextrose 50 ml 02/16/25 01:40 Dextrose 50%-Water Inj 50 Ml Syringe IV 03/18/25 01:39 Q15MIN PRN BG <50 OR BG <70 & pt unresponsive Enoxaparin Sodium 40 mg 02/16/25 09:00 02/17/25 08:22 Enoxaparin Sod Inj 40 Mg/0.4 Ml Syringe SC 03/02/25 08:59 40 mg QDAY INA Administration Glucagon 1 mg 02/16/25 01:40 Glucagon Inj 1 Mg Vial IM Q15MIN PRN BG <70, and no IV access Magnesium Sulfate 4 gm in 50 mls @ 12.5 mls/hr 02/17/25 08:24 02/17/25 09:00 Magnesium Sulfate Ivpb IV 02/17/25 12:23 12.5 mls/hr X1 ONE Administration Insulin Human Lispro 0 unit 02/16/25 21:00 02/17/25 11:26 Insulin Lispro (Admelog) 1 Unit/0.01 Ml Unit SC 03/18/25 20:59 2 unit ACHS INA Administration Protocol Labetalol HCl 10 mg 02/16/25 07:16 Labetalol Inj 5 Mg/Ml Vial 4 Ml IVP Q15M PRN hypertension Ondansetron HCl 4 mg 02/16/25 01:19 Ondansetron Inj 2 Mg/Ml Inj 2 Ml IVP 03/18/25 01:18 Q6H PRN NAUSEA OR VOMITING Protocol Pantoprazole Sodium 40 mg 02/17/25 09:00 02/17/25 08:22 Pantoprazole 40 Mg Tablet PO 03/19/25 08:59 40 mg QDAY INA Administration Sennosides 1 tab 02/16/25 09:00 02/17/25 08:22 Senna Tablet PO 03/18/25 08:59 1 tab QDAY INA Administration Protocol Plan 79-year-old female with past medical history as stated above who presented to the ED with left facial numbness. Patient admitted for CVA workup. #TIA #Left-sided facial numbness, resolved #Hypertensive urgency -Last well-known 8 PM -Not a candidate for thrombolytics due to Eliquis use -Imaging negative for acute hemorrhage, midline shift, mass effect, LVO -At home takes losartan 100 mg hydrochlorothiazide 12.5 mg ? MRI negative for acute infarct? Plan: ? Aspirin 81 mg Qday ? Atorvastatin 40 mg Qday - lipid panel ? Echo ordered ? Maintenance fluids ? PT, speech therapy ? In house Neurology consulted, Dr Puga, appreciate recs #Hx of Atrial fibrillation #Hypertension #Hyperlipidemia #Diabetes mellitus type 2 -Currently NSR - Lipid panel TG 184, CH 149, LDL 72, HDL 40 Plan: - patient post-permissive HTN window. Resumed losartan 100 mg hydrochlorothiazide 12.5 mg daily. - Eliquis 2.5mg bid ? SSI ? Hypoglycemia protocol in place #Lt eye conjunctivitis -Noted to have erythema, burning of the left eye, and a papular surface abnormality on the medial side of the iris of the sclera. - Erythromycin 1g x1 - Gabapentin 100mg bid Disposition: Med Surg Feeding: low fat Thrombo prophylaxis: Eliquis 2.5mg bid Gastric Ulcer prophylaxis: Pantoprazole 40 mg IV daily CODE STATUS: Full code This case was discussed with my attending physician, Dr. Nieves, and senior resident, Dr Adorno. Even though this this note was carefully revised there may still be minor errors in manager community relations due to voice recognition software. Cris Castillo, PGY I Attending Provider Attestation/Addendum I have seen and examined the patient. I was physically present for the lundberg portions of the services provided including history, physical exam, diagnosis, treatment plans and orders. I agree with assessment and plan of care as documented by residents. Even though this this note was carefully revised there may still be minor errors in manager community relations due to voice recognition software. Renato Nieves MD
[2025-02-17] MEDS: LOSARTAN POTASSIUM 25 MG TABLET 100 MG PO (13:05)
--- NOTE | 2025-02-17 13:12 | PC.NURSE ---
was here to see pt.and gave update to famliy members @ bedside.Made him aware pt. c/o burning sensation to Vincent.lower legs more to R.leg.
--- NOTE | 2025-02-17 13:22 | PC.SS ---
Addendum entered by JANINA Sood 02/17/25 14:32: Rounding note: pending echo and PT evaluation Addendum entered by JANINA Sood 02/17/25 13:25: patient and patient daughter requested to speak to bedside nurse and requested that skein bander be present, ASW notified bedside nurse that patient was requesting to speak to her and requested that skein bander be present. Original Note: Patient is a 79 year old woman presenting to the hospital for CVA work up. ASW made face to face contact with patient and patient?s daughters at bedside. Patient allowed for daughters to stay in the room. ASW introduced self, role, and reason for visit. Patient confirmed demographic information and stated that she lives with her son. Patient stated that she has oxygen but is unsure of how many liters, patient thinks [facility] is provider but is unsure. Patient requested that SS call [facility] and ask if they are providers and how often they should be switching out equipment. Patient has wheelchair at home and cane. Patients reports her PCP is Dr. Mayfield last appointment was 01/23/25 pharmacy is [facility]. Patient stated that in case she is unable to make medical decisions on her own she would like Heather Marvin to make them PH: [phone]. Once medically clear patient would like to return home and family will provide transportation. PCP: Dr. Mayfield Decision maker: Heather Marvin PH: [phone] D/c: home
[2025-02-17] MEDS: GABAPENTIN 100 MG CAPSULE PO ×2 (14:15→20:57)
[2025-02-17] MEDS: APIXABAN 2.5 MG TABLET PO (14:15)
[2025-02-17] MEDS: hydrALAZINE INJ 20 MG/ML VIAL 10 MG IVP (15:40)
[2025-02-17] MEDS: ATORVASTATIN CALCIUM 20 MG TABLET 40 MG PO (20:57)
[2025-02-18] VITALS (7 sets, daily range): BP systolic 133–150; BP diastolic 62–79; PULSE 70–95; RESP 16–20; TEMP 36.3–37.1; O2SAT 92–95
[2025-02-18] MEDS: Erythromycin Op Oint 0.5% 1 GM PACKET LEFT EYE ×2 (05:52→11:55)
[2025-02-18 06:16] LABS: Basophils # (Auto) 0.0 Thou/mm3 (0.0-0.2); Basophils % (Auto) 0 % (0-2.5); Eosinophils # (Auto) 0.2 Thou/mm3 (0.0-0.5); Eosinophils % (Auto) 3 % (0-10); Hematocrit 40.7 % (36.0-46.0); Hemoglobin 13.9 g/dL (12.0-16.0); Immature Granulocytes Auto 0.01 Thou/mm3 (0.00-0.00); Lymphocytes # (Auto) 0.9 Thou/mm3 (1.0-4.8); Lymphocytes % (Auto) 16 % (10-50); Mean Corpuscular HGB Conc 34.2 g/dl (31.0-37.0); Mean Corpuscular Hemoglobin 31.5 pg (25.0-35.0); Mean Corpuscular Volume 92 fL (80-100); Monocytes # (Auto) 0.5 Thou/mm3 (0.0-0.8); Monocytes % (Auto) 9 % (0-12); Neutrophils # (Auto) 4.1 Thou/mm3 (1.8-7.7); Neutrophils % (Auto) 71 % (37-80); Nucleated Red Blood Cell # 0.00 Thou/mm3 (0.00-0.00); Nucleated Red Blood Cell % 0 /100 WBC (0); Platelet Count 182 Thou/mm3 (140-440); RDW Standard Deviation 42.7 fL (36.4-46.3); Red Blood Count 4.41 Miln/mm3 (4.00-5.20); White Blood Count 5.7 Thou/mm3 (3.6-11.0)
[2025-02-18 06:43] LABS: Alanine Aminotransferase 19 U/L (10-49); Albumin, Serum 4.2 gm/dL (3.4-4.8); Albumin/Globulin Ratio 2.1 (1.2-2.2); Alkaline Phosphatase 88 U/L (46-116); Anion Gap 11 (7-16); Aspartate Amino Transferase 25 U/L (0-34); BUN/Creatinine Ratio 14 Ratio (12-20); Bilirubin,Total 0.5 mg/dL (0.3-1.2); Blood Urea Nitrogen 10 mg/dL (9-23); Calcium 9.5 mg/dL (8.3-10.6); Calcium (Corrected) 9.5 mg/dL (8.5-10.1); Carbon Dioxide 25.5 mMol/L (20.0-31.0); Chloride 106 mMol/L (98-107); Creatinine (Component) 0.7 mg/dL (0.6-1.3); Globulin 2.0 gm/dL (2.3-3.5); Glucose 171 mg/dL (74-106); Magnesium 1.6 mg/dL (1.6-2.6); Osmolality,Calculated 286 (275-295); Phosphorous 3.3 mg/dL (2.4-5.1); Potassium 4.1 mMol/L (3.4-5.1); Sodium 142 mMol/L (136-145); Total Protein 6.2 gm/dL (5.7-8.2); eGFR > 60 See Note
[2025-02-18] MEDS: LOSARTAN POTASSIUM 25 MG TABLET 100 MG PO (08:11)
[2025-02-18] MEDS: GABAPENTIN 100 MG CAPSULE PO (08:12)
[2025-02-18] MEDS: PANTOPRAZOLE 40 MG TABLET PO (08:12)
[2025-02-18] MEDS: APIXABAN 2.5 MG TABLET PO (08:13)
[2025-02-18] MEDS: ASPIRIN EC 81 MG TABEC PO (08:13)
--- NOTE | 2025-02-18 09:01 | PC.SS ---
Follow up note: Pending PT evaluation. ECHO pending. Pt will return home upon dc.
[2025-02-18] MEDS: Magnesium Sulfate 4 GM Ivpb 4 GM/50 ML BAG IV (09:23)
[2025-02-18] MEDS: INSULIN LISPRO (AdmeLOG) 1 UNIT/0.01 ML UNIT SC (11:53)
--- NOTE | 2025-02-18 16:19 | ESDS_ITS ---
<Statement entered by Emili Chacon DO - 02/20/25 07:18> I, Emili Chacon DO, attest that I was physically present for the lundberg portions of the service and evaluated the patient with the resident and I reviewed and discussed the case with the resident and agree with the resident's findings and plans of care as documented above <Statement entered by Tru Adorno MD - 02/18/25 17:36> Patient seen and examined at bedside. I discussed and supervised with the international banker physician who took care of this patient. I personally saw and examined the patient. I agree with most of the assessment and plan. Plan of care discussed with attending Dr. Chacon. Tru Adorno MD PGY-2 Planned Discharge Date 02/18/25 DS: Providers Provider Date of admission: 02/16/25 01:19 Primary care physician: Chaparro Mc MD Admitting Provider: Sintia Lopez MD Attending Provider on Admission: Emili Chacon DO Consults: 02/15/25 21:19 Consult to Neurology / Tele-Neurology Routine Comment: Consulting Provider: [facility] 02/16/25 01:29 Consult to Neurology / Tele-Neurology Stat Comment: Consulting Provider: Valentin Duggan Referral Physical Therapy Stat Comment: Physician Instructions: Referral Speech Therapy Stat Comment: 02/18/25 14:16 Referral Physical Therapy Urgent Comment: Physician Instructions: Instructions: patient's functional/mobility assessment in preparation for discharge Attending Provider on DC: Cris Castillo DO Discharging Provider: Cris Castillo DO DS: Diagnosis Problem List Completed Was Problem List Reviewed/Reconciled?: Yes Hospital Course Hospital Course Hospital course: 79-year-old female with past medical history of hypertension, hyperlipidemia, history of atrial fibrillation on Eliquis, diabetes who presented to the ED due to left-sided facial numbness and generalized weakness on 02/16/2025. Patient states that his symptom onset was around 8 PM of 02/15/2025. Vitals on arrival BP 191/97, HR 73, satting 95% on room air, labs unremarkable, CT of the head negative for acute hemorrhage, midline shift, mass effect, CTA head and neck negative for LVO. Patient was not a candidate for thrombolytics due to Eliquis use. Neurology was consulted, who recommended MRI stroke protocol, aspirin 81 mg, Plavix 75 mg for 21 days, and medium intensity statin 40mg daily. As patient was on home Eliquis, Eliquis 5 mg twice daily was substituted for Plavix 75 mg daily. Brain MRI with MRA confirmed previous imaging with CTA head and neck, and was also negative for acute infarct. There were moderate chronic microvascular white matter changes. Second day of hospital stay, patient developed erythema, burning, and papular swelling on the medial aspect of the left iris. On original examination there was purulence noted. Erythromycin initiated 1 g for 5 days, with improvements in subsequent inspections over the following days. On labs patient kept to be within normal limits as to CBC and CMP. Lipid panel TG 184, CH 149, LDL 72, HDL 40. Glucose stayed between goal of 120-180 on insulin sliding scale. By the point of discharge, patient's presenting symptoms including unilateral facial numbness have fully resolved. At the time of discharge, patient is medically stable and deemed safe to return to his/her previous state of living. Admission diagnoses: #TIA #Left-sided facial numbness, resolved #Hypertensive urgency #History of atrial fibrillation #Hypertension #Hyperlipidemia #Diabetes mellitus type 2 #Left eye conjunctivitis Discharge instructions: You have been started on the following medications: - Amlodipine 5 mg once daily - Losartan 100 mg once daily - Atorvastatin 40 mg once daily - Erythromycin eye drops, 4 times daily, for 4 more days The following medications have been STOPPED: - Losartan-HCTZ combination pill - Simvastatin Please continue all other medications as previously prescribed. Please follow up with your primary doctor in 7-10 days. Please return to ED if you develop new or worsening symptoms. This case was discussed with my attending physician, Dr. Chacon, and senior resident, Dr Adorno. Even though this this note was carefully revised there may still be minor errors in service rig operator due to voice recognition software. Cris Castillo, DO PGY I Status at Discharge Cognitive/behavioral status at discharge: stable Functional status at discharge: independent ambulation Time Spent with Patient Time attestation: Total time spent providing and/or coordinating discharge services: More than 50% of the patient's total hospital stay Time spent: Greater than 30 minutes Exam Vital Signs Temp Pulse Resp BP Pulse Ox O2 Del Method 97.8 F 95 20 140/72 H 95 Room Air 02/18/25 11:47 02/18/25 11:47 02/18/25 11:47 02/18/25 11:47 02/18/25 06:58 02/18/25 06:58 Narrative Exam General: No acute distress, well nourished, AAO x3. Eye: PERRL, EOMI, normal conjunctiva, no scleral icterus HENT: Normocephalic, atraumatic, hearing intact to conversation at normal volume, moist oral mucosa. Comjunctivitis of Lt eye with surface abnormality/papule with improvement in purulence. Neck: Supple, non-tender, no JVD, no lymphadenopathy Lungs: Non-labored respirations, symmetric chest rise, Clear to auscultate bilaterally, No wheezing, rhonchi, crackles Heart: Peripheral pulses intact bilaterally, Regular Rate and Rhythm. Abdomen: Soft, non-tender, non-distended, no palpable masses Musculoskeletal: Normal range of motion and strength, No cyanosis or edema, No visible joint swelling Skin: Skin is warm, dry, no rashes or lesions. Psychiatric: Cooperative, appropriate mood and affect, Awake and alert, not agitated Neuro: Cranial nerves II-XII grossly intact. Strength 5/5 throughout. Sensations intact to light touch. Discharge Plan Plan Patient Disposition: HOME (Self Care) Patient condition on transfer: Stable Care Plan Goals: You have been started on the following medications: - Amlodipine 5 mg once daily - Losartan 100 mg once daily - Atorvastatin 40 mg once daily - Erythromycin eye drops, 4 times daily, for 4 more days The following medications have been STOPPED: - Losartan-HCTZ combination pill - Simvastatin Please continue all other medications as previously prescribed. Please follow up with your primary doctor in 7-10 days. Please return to ED if you develop new or worsening symptoms. Prescriptions/Referrals Prescriptions/Med Rec: New Eliquis 2.5 mg Tablet 2.5 mg PO BID 30 Days Qty: 60 0RF losartan 100 mg tablet 100 mg PO QDAY 30 Days Qty: 30 2RF amlodipine 5 mg tablet 5 mg PO QDAY 30 Days Qty: 30 2RF atorvastatin [Lipitor] 40 mg tablet 40 mg PO QDAY 30 Days Qty: 30 2RF erythromycin 5 mg/gram (0.5 %) ointment 0.5 inch ophthalmic (eye) QID 4 Days Qty: 3.5 0RF Continued aspirin 81 mg Tablet,Delayed Release (Dr/Ec) 81 mg PO QDAY Saline Nasal 0.65 % aerosol,spray 2 spray intranasal QID PRN (Reason: nasal congestion) Qty: 88 0RF metformin 500 mg Tablet 500 mg PO BIDWMEAL Discontinued omeprazole 20 mg Capsule,Delayed Release(Dr/Ec) 40 mg PO QDAY ibuprofen 800 mg tablet 800 mg PO QID PRN (Reason: pain) Qty: 30 0RF simvastatin 20 mg Tablet 20 mg PO QPM ferrous sulfate 325 mg (65 mg iron) Tablet 325 mg PO QDAY losartan-hydrochlorothiazide 100-12.5 mg Tablet 1 tab PO QDAY potassium chloride 20 mEq Tablet Extended Release 20 meq PO QDAY Referrals: Chaparro Mc MD [Primary Care Provider, Family Practice] Patient/Caregiver Discharge Instructions Discharge Activity: activity as tolerated Education Materials: Stroke and Heart Disease, Using Blood Thinners Anticoagulants, Controlling High Blood Pressure, What Is a TIA?, Heart Disease Women, Stroke Prevention Activity Print Language: [place] Stand Alone Forms: Gretchen Award Info., Patient Portal Info Letter, Work/Release Restrictions Discharge Order Discharge Orders: Discharge (Routine); Ordered 02/18/25 Ordered By: Tru Adorno Quality Discharge Quality Measures VTE prophylaxis
== END 2025-02-18 17:00 | disposition home or self-care (01) ==
LOC: SERX 02-16 00:48 → S3NX 02-18 08:04 → SERHOLD 02-18 10:12 → S3NX 02-18 10:12 → S2NX 02-18 10:12
PROVIDERS: Physician Assistant; Student in an Organized Health Care Education/Training Program; Admitting Provider Student in an Organized Health Care Education/Training Program; Emergency Provider Emergency Medicine; PCP Family Medicine; Visit Provider Internal Medicine
DX: G45.9 Transient cerebral ischemic attack, unspecified (principal); I16.0 Hypertensive urgency; I48.91 Unspecified atrial fibrillation; I10 Essential (primary) hypertension; E11.9 Type 2 diabetes mellitus without complications; H10.9 Unspecified conjunctivitis
CPT/HCPCS: 36415; 70450; 70496; 70498; 70544; 71045; 80053; 80061; 80307; 81001; 83036; 83735; 84100; 84443; 84484; 85025; 85610; 85652; 85730; 86140; 92610; 93005; 93306; 96372; 96374; 96375; 96376; 97162; 99285; A4649; G0378; J0360; J1650; J1815; J2470; J3475; J7030; Q9967; A9270

== ENCOUNTER 2025-02-26 23:21 | Emergency (ER) | payer MEDICARE, MEDICAID, SELFPAY ==
[2025-02-26 23:29] VITALS: BMI 34.2
[2025-02-26 23:38] VITALS: BP 123/64; PULSE 90; RESP 18; TEMP 36.9; O2SAT 94
--- NOTE | 2025-02-26 23:43 | PD.EDHA ---
ED Headache RME/HPI General Chief Complaint: Headache Stated Complaint: HEADACHE AND NUMBNESS L SIDE OF FACE Time Seen by Provider: 02/26/25 23:44 Arrival date/time: 02/26/25 23:21 Limitations: no limitations RME / HPI RME / HPI Narrative: Dr. Al's Main ED Evaluation: 79yo female with a history of HTN, HLD, aFib on Eliquis, DM presents to the ED for a chief complaint of left-sided facial numbness x 30 minutes [employer]. Stroke alert initiated at 2343. Patient reports having an associated headache. Patient states her symptoms have since resolved. Reports her symptoms are similar to her last ED visits. Denies any dizziness, lightheadedness, N/V, or any other associated symptoms. Related Data Home Medications ?Medication ?Instructions ?Recorded ?Confirmed aspirin 81 mg tablet,delayed 81 mg PO QDAY 05/29/18 02/16/25 release metformin 500 mg tablet 500 mg PO BIDWMEAL 07/16/22 02/16/25 Previous Rx's ?Medication ?Instructions ?Recorded sodium chloride 0.65 % nasal spray 2 spray intranasal QID PRN nasal 12/09/21 aerosol (Saline Nasal) congestion #88 mL amlodipine 5 mg tablet 5 mg PO QDAY 1 month #30 tabs 02/18/25 apixaban 2.5 mg tablet (Eliquis) 2.5 mg PO BID 1 month #60 tabs 02/18/25 atorvastatin 40 mg tablet (Lipitor) 40 mg PO QDAY 1 month #30 tabs 02/18/25 losartan 100 mg tablet 100 mg PO QDAY 1 month #30 tabs 02/18/25 Allergies Allergy/AdvReac Type Severity Reaction Status Date / Time Penicillins Allergy Unknown Verified 02/26/25 23:33 Review of Systems Review of Systems Systems Reviewed: All systems reviewed, normal except as documented Past Medical History Past Medical History NEUROLOGIC: Negative Neurological Disorders or Seizures CARDIAC: Positive Cardiac Disorders, Atrial Fibrillation, Coronary Artery Disease, Hypercholesterolemia, Valvular Heart Disease and Hypertension; Negative Congestive Heart Failure RESPIRATORY: Positive Pneumonia; Negative Chronic Obstructive Pulmonary Disease (COPD) GASTROINTESTINAL: Positive Gastrointestinal Disorders, Hemorrhoids and Obesity GENITOURINARY: Negative Genitourinary Disorders or Renal Disease REPRODUCTIVE: Positive Previous Pregnancies MUSCULOSKELETAL: Positive Musculoskeletal Disorders and Arthritis ENT: Positive Cataracts ENDOCRINE: Positive Endocrine Disorders and Diabetes Mellitus Type 2; Negative Diabetes Mellitus Type 1 HEMATOLOGIC: Positive Blood Disorders and Anemia OTHER HISTORY: Positive Hospitalization and Blood Transfusions; Negative Autoimmune Disease, Down Syndrome, Developmental Delay, Shingles, Falls, Blood Transfusion Reaction, Anesthesia Reactions or Cancer Family History FAMILY HISTORY: Negative Family Psychiatric Problems, Family Respiratory Disorders, Family Cardiac Disorders, Family Gastrointestinal Problems, Family Cancer, Family Surgery or Family Anesthesia Reaction Surgical History SURGICAL: Positive Cardiac Surgery, Open Heart Surgery, Coronary Artery Bypass Graft, Hysterectomy and Tubal Ligation Social History SMOKING STATUS: Never smoker SUBSTANCE USE: does not use ED Exam Narrative Physical exam: 1A: Level of Consciousness - Alert; keenly responsive?+ 0 1B: Ask Month and Age - Both Questions Right?+ 0 1C: Blink Eyes & Squeeze Hands - Performs Both Tasks?+ 0 2: Test Horizontal Extraocular Movements - Normal?+ 0 3: Test Visual Bills - No Visual Loss?+ 0 4: Test Facial Palsy (Use Grimace if Obtunded) - Normal symmetry?+ 0 5A: Test Left Arm Motor Drift - No Drift for 10 Seconds?+ 0 5B: Test Right Arm Motor Drift - No Drift for 10 Seconds?+ 0 6A: Test Left Leg Motor Drift - No Drift for 5 Seconds?+ 0 6B: Test Right Leg Motor Drift - No Drift for 5 Seconds?+ 0 7: Test Limb Ataxia (FNF/Heel-Rowley) - No Ataxia?+ 0 8: Test Sensation - Mild-Moderate Loss: Less Sharp/More Dull?+ 1 9: Test Language/Aphasia - Normal; No aphasia?+ 0 10: Test Dysarthria - Normal?+ 0 11: Test Extinction/Inattention - No abnormality?+ 0 NIHSS Score:?1 General Limitations: Present no limitations General appearance: Present alert and in no apparent distress Head Head exam: Present atraumatic Eye Eye exam: Present normal appearance, PERRL and EOMI ENT ENT exam: Present normal exam, normal oropharynx and mucous membranes moist Neck Neck exam: Present normal inspection, full ROM and trachea midline Chest Chest inspection: Present normal inspection and symmetric chest wall rise Respiratory Respiratory exam: Present normal lung sounds bilaterally Cardiovascular Cardiovascular exam: Present regular rate, normal rhythm and normal heart sounds Abdominal Exam Abdominal exam: Present soft and normal bowel sounds Extremities Exam Extremities exam: Present normal inspection and full ROM Back Exam Back exam: Present normal inspection and full ROM Neurological Exam Neurological exam: Present alert, oriented X3 and CN II-XII intact Psychiatric Psychiatric exam: Present normal affect and normal mood Skin Skin exam: Present warm, dry, intact and normal color Course Course Course Narrative: 2343: Stroke alert initiated. Quality Measures stroke Orders Category Date Time Status Bedside Blood Glucose NOW Care 02/26/25 23:44 Active Material Control Associate NOW Care 02/26/25 23:44 Active Continuous Pulse Oximetry NOW Care 02/26/25 23:44 Completed EKG (ED ONLY) *Do not use* NOW Care 02/26/25 23:44 Completed In and Out Catheter NEEDED Care 02/26/25 23:44 Active Insert IV NOW Care 02/26/25 23:44 Active NIH Stroke Scale now Care 02/26/25 23:44 Active NPO NOW Care 02/26/25 23:44 Active Nurse Swallow Screen x1 Care 02/26/25 23:44 Active Consult to Neurology / Tele-Neurology Routine Cons 02/26/25 23:[address] angio stroke protocol Stat Exams 02/26/25 23:[address] stroke protocol Stat Exams 02/26/25 23:44 Completed EKG (ED Only) Stat Exams 02/26/25 23:44 Ordered XR chest 1V portable Stat Exams 02/26/25 23:44 Taken CBC Stat Lab 02/26/25 23:48 Completed Comprehensive Metabolic Panel Stat Lab 02/26/25 23:48 Completed Drug Screen,Urine Stat Lab 02/27/25 01:23 Received HCG Titer if Positive Stat Lab 02/26/25 23:48 Completed Magnesium Stat Lab 02/26/25 23:48 Completed Partial Thromboplastin Time Stat Lab 02/26/25 23:48 Completed Prothrombin Time with INR Stat Lab 02/26/25 23:48 Completed Troponin I Stat Lab 02/26/25 23:48 Completed Urinalysis, C/S if Indicated Stat Lab 02/27/25 01:23 Received Acetaminophen Tab [Tylenol Tab] Med 02/27/25 01:32 Discontinued 650 mg PO X1 ONE Labetalol* IV [Trandate* IV] Med 02/26/25 23:44 Discontinued 10 mg IVP Q15M PRN Ondansetron Inj [Zofran Inj] Med 02/26/25 23:44 Active 4 mg IVP Q4HR PRN Oxygen Delivery NOW RT 02/26/25 23:44 Active Vital Signs Vital signs: Vital Signs Temperature 98.5 F 02/26/25 23:38 Pulse Rate 90 02/26/25 23:38 Respiratory Rate 18 02/26/25 23:38 Blood Pressure 123/64 02/26/25 23:38 Pulse Oximetry (%) 94 L 02/26/25 23:38 Oxygen Delivery Method Room Air 02/26/25 23:38 Headache MDM Narrative MDM Narrative:: Scribe Attestation: 02/26/25 Chantelle Domínguez am scribing for and in the presence of Dr. Al. 79-year-old female who presents to the emergency department with mild left headache with left facial numbness that has improved since her symptoms started 30 to 45 minutes prior to arrival. Patient otherwise has no weakness or numbness. This is exactly her similar presentation when she was seen on 15 February and had a workup and was admitted and ruled out for stroke. Here in the emergency department the patient has an NIH score of 0. Her symptoms are mild headache, otherwise no new changes in her symptoms and previous. Discussed with Dr. Jean Andino, teleneurologist on-call. At this time he feels that the patient can get a complicated headache medication regimen and would not work her up for new stroke. Will give Reglan Benadryl, consider Toradol. Reevaluation. Patient data External records reviewed:: [facility] previous records (Per chart review, patient was admitted here on 02/15/25 for episode of HTN.) Clinical information provided by:: patient Social determinants that could affect healthcare access:: none Patient has the following chronic illnesses:: HTN, HLD, aFib on Eliquis, diabetes How is presenting disease/condition affected by chronic disease/condition?: uneffected by Evaluation data The following diagnostics were reviewed and interpreted by me:: lab results, radiology exam(s) and EKG tracing(s) Lab and/or radiology exams considered but not ordered:: none Interpretation Summary: CBC normal, PT/INR/PTT normal, Glucose 184, Mg 1.2, Troponin normal. EKG done at 0012, sinus rhythm, rate of 71, normal intervals, normal axis, no acute ST or T-wave changes, ND interval: 174, QTc: 397, according to my interpretation. [facility] Preliminary Report Draft Patient: PRANAYGEOVANYSAVANAHVIVIANE BERNARD [facility]. Record#: [id number] Birthdate: 1945 Age/Sex: 79 / F Location: [facility] Attending Dr: Ordering Physician: Date of Service: Procedure(s): Accession Number(s): cc: ~ CT scan of the head without intravenous contrast (axial sections with sagittal and coronal reformats). February 27, 2025 0002 hours Clinical History: Focal neuro deficit, stroke suspected, left side weakness Comparison: 02/15/25 Findings: There is involutional atrophy of the cerebral hemispheres and cerebellum. There is no intracranial hemorrhage, extra-axial collection, mass, mass-effect or midline shift. There is mild white matter disease within the cerebral hemispheres which is nonspecific but may represent chronic small vessel ischemic change. There is good nelson-white differentiation. There is no CT evidence of acute large vascular territorial infarct. Ventricles are not enlarged or effaced. There is atherosclerotic calcification along the intracranial vertebral arteries and carotid siphons. Visualized paranasal sinuses and tympanomastoid cavities are clear except for mild left maxillary sinus mucosal thickening. The bony calvarium is intact. Impression: No intracranial hemorrhage, mass-effect or midline shift. No CT evidence of acute large vascular territorial infarct. Report Electronically Signed By: Vijay Luther 02/27/2025 1:03:38 AM [EST [facility] Preliminary Report Draft Patient: VIVIANE MCKINLEY [facility]. Record#: [id number] Birthdate: 1945 Age/Sex: 79 / F Location: [facility] Attending Dr: Ordering Physician: Date of Service: Procedure(s): Accession Number(s): cc: ~ CT angiogram of the head and neck with intravenous contrast (axial sections with sagittal and coronal reformats). February 27, 2025 0004 hours Clinical History: Focal neuro deficit, stroke suspected, left side weakness Comparison: 02/15/2025 Findings: There is aneurysmal dilatation of the ascending thoracic aorta but this is not entirely visualized on this study. There is mild atherosclerotic calcification along the thoracic aorta and great vessels. There is a classic three-vessel aortic arch configuration. Mild atherosclerotic calcification/plaque along the cervical carotid circulation results in less than 20% stenosis per NASCET criteria, which is [id number]. The cervical vertebral arteries are intact without flow-limiting stenosis. There is no aneurysm or dissection of the cervical carotid or cervical vertebral circulation. The intracranial vertebral arteries are intact without flow-limiting stenosis. The basilar artery is intact without flow-limiting stenosis. The posterior cerebral arteries are intact without flow-limiting stenosis. There is atherosclerotic calcification along the carotid siphons and supraclinoid internal carotid arteries which is [id number]. The anterior and middle cerebral arteries are intact without flow-limiting stenosis. There is no intracranial aneurysm or AVM. Impression: 1. No flow-limiting stenosis, aneurysm or dissection of the cervical carotid or cervical vertebral circulation. 2. No intracranial major proximal vessel occlusion, flow-limiting stenosis, aneurysm or AVM. 3. Aneurysmal dilatation of the ascending thoracic aorta, similar to prior study but incompletely evaluated on this study. Report Electronically Signed By: Vijay Luther 02/27/2025 1:17:41 AM [EST] Medications / Prescriptions Medications or Prescriptions considered but not ordered:: none Medication administrations:: Medication Administration History Ondansetron HCl (Ondansetron Inj 2 Mg/Ml Inj 2 Ml) 4 mg IVP Q4HR PRN PRN Reason: NAUSEA OR VOMITING Stop: 03/28/25 23:43 Discontinued Medications Acetaminophen (Acetaminophen 325 Mg Tablet) 650 mg PO X1 ONE Stop: 02/27/25 01:33 Last Admin: 02/27/25 01:40 Dose: Not Given Documented By: JORDAN Non-Admin Reason: Patient Refused Labetalol HCl (Labetalol Inj 5 Mg/Ml Vial 4 Ml) 10 mg IVP Q15M PRN PRN Reason: hypertension see above Consultations Consultation(s) initiated? (list below): Yes Diagnosis Differential diagnosis headache: migraine, tension headache, headache and other (CVA, TIA) Most likely diagnosis given after review of the tests above:: see clinical impression below Admission Indicated Admission indicated?: not indicated Admission Request Was there a request for admission?: No Disposition Plan Disposition Plan: Discharge Discharge Attestation Discharge Attestation: The patient and all family members were given an opportunity to ask questions and understood the discharge instructions. Discharge instructions specifically effects, indications for sooner follow up or return to the emergency department, and the expected course of current diagnosis. Patient condition: Stable Discharge Plan Plan Patient condition on transfer: Stable Prescriptions/Referrals Prescriptions/Med Rec: No Action aspirin 81 mg Tablet,Delayed Release (Dr/Ec) 81 mg PO QDAY Saline Nasal 0.65 % aerosol,spray 2 spray intranasal QID PRN (Reason: nasal congestion) Qty: 88 0RF Eliquis 2.5 mg Tablet 2.5 mg PO BID 30 Days Qty: 60 0RF losartan 100 mg tablet 100 mg PO QDAY 30 Days Qty: 30 2RF amlodipine 5 mg tablet 5 mg PO QDAY 30 Days Qty: 30 2RF atorvastatin [Lipitor] 40 mg tablet 40 mg PO QDAY 30 Days Qty: 30 2RF metformin 500 mg Tablet 500 mg PO BIDWMEAL Referrals: Chaparro Mc MD [Primary Care Provider, Family Practice] - In 1 week Problem List Clinical Impression: Headache Patient/Caregiver Discharge Instructions Education Materials: Self-Care for Headaches Additional Instructions: Today the teleneurologist Dr. Pena does not feel that you need another stroke workup. We will treat you for headache. Please return to the emergency department for any worsening symptoms, or any other concerns. Print Language: Irish
--- NOTE | 2025-02-26 23:44 | XR_ITS ---
Examination: CT brain head without contrast. 2-D sagittal coronal reconstructions Date and time of exam: February 27, 2025, 0002 hours INDICATIONS: Stroke alert, onset focal neurologic deficit Technique: Multiple CT axial sections of the brain have been obtained, 5 mm slice thickness. Contrast has not been administered. 2-D sagittal, coronal reconstructions have been obtained Low dose protocols were performed. One or more of the following dose reduction techniques were used; automated exposure control, adjustment of the mA and/or KV according to patient size, use of iterative reconstruction technique. Findings: No significant ventricular enlargement. Intra-axial or extra-axial hemorrhage density is not seen. No mass effect or midline shift Basal cisterns are not remarkable. Fourth ventricle is midline. Cranial vault intact. Impression: Negative for acute hemorrhage, mass effect or midline shift
--- NOTE | 2025-02-26 23:44 | XR_ITS ---
EXAMINATION: AP chest single view TECHNIQUE: AP portable upright chest single view Date and time: February 27, 2025, 0015 hours, comparison February 15, 2025 INDICATIONS: Stroke alert today. FINDINGS: Mild enlargement cardiac contour No aspiration pneumonia Prominent osteopenia Median sternotomy wires IMPRESSION: No aspiration pneumonia
--- NOTE | 2025-02-26 23:44 | XR_ITS ---
Examination: CTA carotids with intravenous contrast CTA brain, head with intravenous contrast. 2-D sagittal, coronal reconstructions. 3-D reconstructions. Exam date and time: February 27, 2025, 0004 hours INDICATIONS: Stroke alert, onset headache with numbness left side of the face today CTDI: vol (mGy) 11.6 DLP: (mGycm) 419 Technique: Multiple CTA axial brain, head carotid images post intravenous contrast injection 75 cc, [id number]. 2-D sagittal, coronal reconstructions. 3-D reconstructions, 3-D post processing including vascular maximum intensity projection images. Low dose protocols were performed. One or more of the following dose reduction techniques were used; automated exposure control, adjustment of the mA and/or KV according to patient size, use of iterative reconstruction technique. Findings: AP dimension ascending thoracic aorta 4.5 cm Pulmonary artery segments are not enlarged No pulmonary artery filling defects depicted No significant common carotid carotid bifurcation or internal carotid artery stenoses Dominant left vertebral artery in the neck with no significant stenoses No cerebral large vessel arterial occlusions, thrombus, dissection or cerebral aneurysm IMPRESSION: No significant neck arterial stenoses No cerebral large vessel arterial occlusions or thrombus
[2025-02-26 23:54] LABS: Basophils # (Auto) 0.0 Thou/mm3 (0.0-0.2); Basophils % (Auto) 1 % (0-2.5); Eosinophils # (Auto) 0.1 Thou/mm3 (0.0-0.5); Eosinophils % (Auto) 2 % (0-10); Hematocrit 39.3 % (36.0-46.0); Hemoglobin 13.3 g/dL (12.0-16.0); Immature Granulocytes Auto 0.01 Thou/mm3 (0.00-0.00); Lymphocytes # (Auto) 2.5 Thou/mm3 (1.0-4.8); Lymphocytes % (Auto) 39 % (10-50); Mean Corpuscular HGB Conc 33.8 g/dl (31.0-37.0); Mean Corpuscular Hemoglobin 32.1 pg (25.0-35.0); Mean Corpuscular Volume 95 fL (80-100); Monocytes # (Auto) 0.6 Thou/mm3 (0.0-0.8); Monocytes % (Auto) 9 % (0-12); Neutrophils # (Auto) 3.3 Thou/mm3 (1.8-7.7); Neutrophils % (Auto) 50 % (37-80); Nucleated Red Blood Cell # 0.00 Thou/mm3 (0.00-0.00); Nucleated Red Blood Cell % 0 /100 WBC (0); Platelet Count 224 Thou/mm3 (140-440); RDW Standard Deviation 43.8 fL (36.4-46.3); Red Blood Count 4.14 Miln/mm3 (4.00-5.20); White Blood Count 6.6 Thou/mm3 (3.6-11.0)
[2025-02-27 00:10] VITALS: PULSE 72; RESP 20; RESP 94
[2025-02-27 00:20] LABS: Alanine Aminotransferase 27 U/L (10-49); Albumin, Serum 4.9 gm/dL (3.4-4.8); Albumin/Globulin Ratio 2.1 (1.2-2.2); Alkaline Phosphatase 122 U/L (46-116); Anion Gap 10 (7-16); Aspartate Amino Transferase 29 U/L (0-34); BUN/Creatinine Ratio 20 Ratio (12-20); Bilirubin,Total 0.4 mg/dL (0.3-1.2); Blood Urea Nitrogen 18 mg/dL (9-23); Calcium 9.5 mg/dL (8.3-10.6); Calcium (Corrected) 9.5 mg/dL (8.5-10.1); Carbon Dioxide 28.5 mMol/L (20.0-31.0); Chloride 103 mMol/L (98-107); Creatinine (Component) 0.9 mg/dL (0.6-1.3); Estimated Creatinine Clearance 46.5 mL/min (>60); Globulin 2.3 gm/dL (2.3-3.5); Glucose 184 mg/dL (74-106); Magnesium 1.2 mg/dL (1.6-2.6); Osmolality,Calculated 288 (275-295); Potassium 4.6 mMol/L (3.4-5.1); Sodium 141 mMol/L (136-145); Total Protein 7.2 gm/dL (5.7-8.2); Troponin I < 0.020 ng/mL (0.0-0.045); eGFR > 60 See Note
[2025-02-27 00:35] LABS: INR 1.0 (0.9-1.3); Partial Thromboplastin Time 29.3 Seconds (22.0-36.0); Prothrombin Time 10.8 Seconds (9.0-12.2)
--- NOTE | 2025-02-27 00:43 | PD.TNEURO ---
Tele Neuro Consultation Consultation Date 02/27/25 Most Recent Vital Signs Last Vital Signs Temp 98.5 F 02/26/25 23:38 Pulse 72 02/27/25 00:10 Resp 20 02/27/25 00:10 BP 123/64 02/26/25 23:38 Pulse Ox 94 L 02/26/25 23:38 O2 Del Method Room Air 02/26/25 23:38 O2 Flow Rate 94 02/27/25 00:10 Laboratory-Coagulation Panel PT 10.8 Seconds (9.0-12.2) 02/26/25 23:48 INR 1.0 (0.9-1.3) 02/26/25 23:48 APTT 29.3 Seconds (22.0-36.0) 02/26/25 23:48 Consultation Narrative [facility] Patient Name:???VIVIANE MCKINLEY Date of :???1945 Identification Number:??? Date of Service:???02/26/2025 23:48:13 Diagnosis:?G44.59 - Other complicated headache syndrome Impression: ?79YOF with a PMHx of HTN, Afib on [facility], D, presenting to the [place] ED in the setting of sudden onset L facial numbness and bifrontal headache. In setting of recent presentation with similar symptoms with overall noncontributory workup, low suspicion for an acute ischemic process, particularly given that semiologically, symptoms resemble previous admission. Given that on both instances sensory deficits were associated with a superimposed headache, higher suspicion for an acute complicated headache syndrome, and in that context, would favor empirically treating patient's underlying headache for now and close monitoring-if facial symptoms resolve alongside headache, ok to discharge home with close outpatient PCP follow up. Our recommendations are outlined below. Recommendations: ?Continue home antiplatelet regimen ?Empiric headache treatment now (Compazine 5mg IV, Diphenhydramine 25mg IV, and Toradol 15mg IV x once) ?If L facial numbness persists for more than 60mins after resolution of headache, or if both headache and facial numbness continue after two rounds of headache treatment, would recommend empirically treating as a stroke, with initiation of Clopidogrel load 300mg as well as [id number] x once with admission for stroke workup including MRI brain wo con. ?If symptoms resolve with headache treatment, ok to discharge home with outpatient Neurology and PCP follow up in 2-6 weeks Sign Out: ? Discussed with Emergency Department Provider Advanced Imaging: Advanced Imaging Deferred because: Non-disabling symptoms as verified by the patient; no cortical signs so not consistent with LVO Stroke not suspected with clinical presentation and exam Metrics: Last Known Well: 02/26/2025 23:00:00 Arrival Time: 02/26/2025 23:21:00 Activation Time: 02/26/2025 23:48:12 Initial Response Time: 02/26/2025 23:49:02Symptoms: Sudden onset L sided numbness. Initial patient interaction: 02/26/2025 23:50:53 NIHSS Assessment Completed: 02/26/2025 23:58:32Patient is not a candidate for Thrombolytic. Thrombolytic Medical Decision: 02/26/2025 23:58:33Patient was not deemed candidate for Thrombolytic because of following reasons: Use of NOAC in last 48 hrs. . other diagnosis suspected Suspect complicated headache syndrome. Stroke severity too mild (non-disabling) . CT Head: I personally reviewed all the CT images that were available to me and it showed: no blood products or early ischemic changes Primary Provider Notified of Diagnostic Impression and Management Plan on: 02/27/2025 00:29:13 History of Present Illness:Patient is a 79 year old Female. Patient was brought by private transportation with symptoms of Sudden onset L sided numbness. 79YOF with a PMHx of HTN, Afib on [place], HLD, presenting to the [place] ED in the setting of sudden onset L facial numbness. Per patient, symptom onset at appx 2300; patient states that she developed a mild-moderate sudden pressure-like headache along the frontal region, followed by numbness over the L side of her face reaching the midline region. Denies any changes in vision with no sensitivity to light or sound. Per patient, had similar symptoms two weeks prior; on 02/15, she also had an episode of L sided facial numbness, which self resolved after several hours, and was thusly admitted for a stroke workup with noncontributory workup at that time. Patient denies focal weakness, extremity sensory deficits, or changes in vision or speech. Past Medical History: ?Hypertension ?Atrial Fibrillation ?There is no history of Seizures Medications: No Anticoagulant use? Antiplatelet use:?Yes?ASA Reviewed EMR for current medications Allergies:? Reviewed Social History: Drug Use: No Family History: There is no family history of premature cerebrovascular disease pertinent to this consultation ROS : 14 Points Review of Systems was performed and was negative except mentioned in HPI. Past Surgical History: There Is No Surgical History Contributory To Today?s Visit Examination: BP(157/75),?Pulse(93),?Blood Glucose(187) 1A: Level of Consciousness - Alert; keenly responsive?+ 0 1B: Ask Month and Age - Both Questions Right?+ 0 1C: Blink Eyes & Squeeze Hands - Performs Both Tasks?+ 0 2: Test Horizontal Extraocular Movements - Normal?+ 0 3: Test Visual Bills - No Visual Loss?+ 0 4: Test Facial Palsy (Use Grimace if Obtunded) - Normal symmetry?+ 0 5A: Test Left Arm Motor Drift - No Drift for 10 Seconds?+ 0 5B: Test Right Arm Motor Drift - No Drift for 10 Seconds?+ 0 6A: Test Left Leg Motor Drift - No Drift for 5 Seconds?+ 0 6B: Test Right Leg Motor Drift - No Drift for 5 Seconds?+ 0 7: Test Limb Ataxia (FNF/Heel-Rowley) - No Ataxia?+ 0 8: Test Sensation - Mild-Moderate Loss: Less Sharp/More Dull?+ 1 9: Test Language/Aphasia - Normal; No aphasia?+ 0 10: Test Dysarthria - Normal?+ 0 11: Test Extinction/Inattention - No abnormality?+ 0 NIHSS Score:?1 NIHSS Free Text :?Subtle L hemifacial decreased sensation Pre-Morbid Modified Hampton Scale: 1 Points = No significant disability despite symptoms; able to carry out all usual duties and activities Spoke with :?Dr. Desai This consult was conducted in real time using interactive audio and video technology. Patient was informed of the technology being used for this visit and agreed to proceed. Patient located in hospital and provider located at home/office setting. Patient is being evaluated for possible acute neurologic impairment and high probability of imminent or life-threatening deterioration. I spent total of 25 minutes providing care to this patient, including time for face to face visit via telemedicine, review of medical records, imaging studies and discussion of findings with providers, the patient and/or family. Dr Sina Pena [facility] For Inpatient follow-up with [facility] physician please call [facility] at . As we are not an outpatient service for any post hospital discharge needs please contact the hospital for assistance. If you have any questions for the [facility] physicians or need to reconsult for clinical or diagnostic changes please contact us via [facility] at . Non-radiologist review of imaging performed to assist with emergent clinical decision-making. Remote physician workstations do not possess the same resolution, calibration, or diagnostic capabilities as hospital-based radiology reading stations, and formal radiologist read is necessary. Signature :Abeba Pena
--- NOTE | 2025-02-27 01:05 | PRELIM_ITS ---
CT scan of the head without intravenous contrast (axial sections with sagittal and coronal reformats). February 27, 2025 0002 hours Clinical History: Focal neuro deficit, stroke suspected, left side weakness Comparison: 02/15/25 Findings: There is involutional atrophy of the cerebral hemispheres and cerebellum. There is no intracranial hemorrhage, extra-axial collection, mass, mass-effect or midline shift. There is mild white matter disease within the cerebral hemispheres which is nonspecific but may represent chronic small vessel ischemic change. There is good nelson-white differentiation. There is no CT evidence of acute large vascular territorial infarct. Ventricles are not enlarged or effaced. There is atherosclerotic calcification along the intracranial vertebral arteries and carotid siphons. Visualized paranasal sinuses and tympanomastoid cavities are clear except for mild left maxillary sinus mucosal thickening. The bony calvarium is intact. Impression: No intracranial hemorrhage, mass-effect or midline shift. No CT evidence of acute large vascular territorial infarct. Report Electronically Signed By: Vijay Luther 02/27/2025 1:03:38 AM [EST]
--- NOTE | 2025-02-27 01:18 | PRELIM_ITS ---
CT angiogram of the head and neck with intravenous contrast (axial sections with sagittal and coronal reformats). February 27, 2025 0004 hours Clinical History: Focal neuro deficit, stroke suspected, left side weakness Comparison: 02/15/2025 Findings: There is aneurysmal dilatation of the ascending thoracic aorta but this is not entirely visualized on this study. There is mild atherosclerotic calcification along the thoracic aorta and great vessels. There is a classic three-vessel aortic arch configuration. Mild atherosclerotic calcification/plaque along the cervical carotid circulation results in less than 20% stenosis per NASCET criteria, which is [id number]. The cervical vertebral arteries are intact without flow-limiting stenosis. There is no aneurysm or dissection of the cervical carotid or cervical vertebral circulation. The intracranial vertebral arteries are intact without flow-limiting stenosis. The basilar artery is intact without flow-limiting stenosis. The posterior cerebral arteries are intact without flow-limiting stenosis. There is atherosclerotic calcification along the carotid siphons and supraclinoid int ernal carotid arteries which is [id number]. The anterior and middle cerebral arteries are intact without flow-limiting stenosis. There is no intracranial aneurysm or AVM. Impression: 1. No flow-limiting stenosis, aneurysm or dissection of the cervical carotid or cervical vertebral circulation. 2. No intracranial major proximal vessel occlusion, flow-limiting stenosis, aneurysm or AVM. 3. Aneurysmal dilatation of the ascending thoracic aorta, similar to prior study but incompletely evaluated on this study. Report Electronically Signed By: Vijay Luther 02/27/2025 1:17:41 AM [EST]
[2025-02-27 01:50] LABS: Collection Type, Urine Clean Catch
[2025-02-27 01:53] LABS: Bilirubin,Urine Negative (Negative); Blood,Urine Negative (Negative); Clarity,Urine Clear (Clear/Hazy); Color,Urine Colorless (Lt Yel-Yel); Glucose, Urine Negative (Negative); Ketones,Urine Negative (Negative); Leukocyte Esterase,Urine Positive (Negative); Nitrite,Urine Negative (Negative); PH,Urine 6.5 (5.0-7.0); Protein,Urine Negative (Neg - Trace); RBC,Urine 2 /hpf (0-3); Specific Gravity,Urine 1.027 (1.001-1.035); Squamous Epithelial Cell,Urine 1 /hpf (0-5); Urobilinogen,Urine Negative mg/dL (0.0-1.0); WBC,Urine 16 /hpf (0-5)
[2025-02-27 01:56] LABS: Culture Indicated,Urine Yes
[2025-02-27 01:58] LABS: Amphetamine/Methamp Scrn,U Negative (Negative); Barbiturate Screen,Urine Negative (Negative); Benzodiazepines Screen,Urine Negative (Negative); Benzoylecgonine Screen, Ur Negative (Negative); Fentanyl Screen,Urine Negative (Negative); Opiate Screen,Urine Negative (Negative); THC Screen,Urine Negative (Negative)
[2025-02-27 02:08] VITALS: BP 138/66; PULSE 66; RESP 18; O2SAT 95
== END 2025-02-27 02:08 | disposition home or self-care (01) ==
PROVIDERS: Emergency Provider Emergency Medicine; PCP Family Medicine
DX: R51.9 Headache, unspecified (principal); R20.0 Anesthesia of skin; I71.21 Aneurysm of the ascending aorta, without rupture; I38 Endocarditis, valve unspecified; I10 Essential (primary) hypertension; E78.00 Pure hypercholesterolemia, unspecified; I48.91 Unspecified atrial fibrillation; Z79.01 Long term (current) use of anticoagulants
CPT/HCPCS: 36415; 70450; 70496; 70498; 71045; 80053; 80307; 81001; 83735; 84484; 84703; 85025; 85610; 85730; 87086; 93005; 99283; A4649; Q9967